=== PATIENT | female | born 1970 | race Caucasian/White ===

== ENCOUNTER → 2017-09-10 09:46 | Outpatient (POV) | payer OTHER, SELFPAY | PROVIDERS: PCP Nurse Practitioner Family; Visit Provider Nurse Practitioner Acute Care | DX: Z00.00 Encounter for general adult medical examination without abnormal findings (principal) ==

== ENCOUNTER → 2017-12-10 09:16 | Outpatient (POV) | payer OTHER, SELFPAY ==
[2017-12-10 10:17] LABS: Basophils % 0.6 % (0.1-2.0); Eosinophils # 0.1 K/mm3 (0.0-0.4); Hematocrit 41.6 % (37.0-47.0); Lymphocytes # 1.3 K/mm3 (0.7-4.5); Lymphocytes % 26.2 K/mm3 (10-50); Mean Corpuscular HGB Conc 33.8 g/dL (31.8-35.4); Mean Corpuscular Hemoglobin 30.5 pg (27.0-31.2); Mean Corpuscular Volume 90.3 fl (81-99); Mean Platelet Volume 9.9 fl (7.4-10.4); Monocytes # 0.3 K/mm3 (0.1-1.0); Monocytes % 5.7 % (1.7-9.3); Neutrophils # 3.3 K/mm3 (1.8-7.8); Neutrophils % 66.6 % (37.0-80.0); Platelet Count 160 K/mm3 (142-424); Red Cell Distribution Width 12.4 % (11.5-17.5)
[2017-12-10 12:55] LABS: Alanine Aminotransferase 23 U/L (12-78); Albumin Level 4.4 gm/dL (3.4-5.0); Albumin/Globulin Ratio 1.4 (1.1-1.8); Alkaline Phosphatase 86 U/L (46-116); Amylase 40 U/L (25-125); Anion Gap 12.7 mEq/L (5-15); Aspartate Amino Transferase 14 U/L (15-37); Bilirubin,Total 0.8 mg/dL (0.2-1.0); Blood Urea Nitrogen 12 mg/dL (7-18); Calcium 9.5 mg/dL (8.5-10.1); Carbon Dioxide 30 mmol/L (21.0-32.0); Chloride 103 mmol/L (98-107); Creatinine,Serum 0.81 mg/dL (0.55-1.02); Estimated Glomerular Filt Rate 75 ml/min (>60); GFR (African American) 91 ML/MIN (>60); Globulin 3.1 gm/dl (1.3-3.2); Glucose 111 mg/dL (74-106); Lipase 130 u/L (73-393); Potassium 3.7 mmoL/L (3.5-5.1); Sodium 142 mmol/L (136-145); Total Protein,Serum 7.5 gm/dL (6.4-8.2)
== END ==
PROVIDERS: Visit Provider Nurse Practitioner Acute Care
DX: R10.11 Right upper quadrant pain (principal)
CPT/HCPCS: 36415; 80053; 82150; 83690; 85025

== ENCOUNTER → 2019-12-28 16:27 | Outpatient (CLI) | payer OTHER, SELFPAY ==
--- NOTE | 2019-12-28 16:33 | XR_ITS ---
PROCEDURE: XR WRIST RT MIN 3V CLINICAL INDICATION: PAIN IN RIGHT WRIST Injury with pain COMPARISON: No exams were available for comparison FINDINGS: There is a faint transverse lucency along the lateral aspect of the distal radius suspicious for nondisplaced fracture. In addition, there is cortical irregularity of the posterior and distal aspect of the radius which could also be due to a nondisplaced fracture. CT of the wrist may confirm. IMPRESSION: Nondisplaced distal radial fracture. Consider CT for confirmation Dictated by: Rui Juarez MD 12/28/2019 19:38 Electronically signed by Rui Juarez MD in [place] 12/28/2019 19:38
== END ==
PROVIDERS: PCP Nurse Practitioner Family; Visit Provider Urology
DX: M25.531 Pain in right wrist (principal)
CPT/HCPCS: 73110

== ENCOUNTER → 2020-11-10 09:22 | Outpatient (CLI) | payer OTHER, SELFPAY ==
[2020-11-10 11:05] LABS: Coronavirus 19 IgG Antibody Negative (Negative); Coronavirus 19 IgM Antibody Negative (Negative)
== END ==
PROVIDERS: Visit Provider Internal Medicine Gastroenterology
DX: Z01.812 Encounter for preprocedural laboratory examination (principal); Z11.52 Encounter for screening for COVID-19; Z12.11 Encounter for screening for malignant neoplasm of colon; Z86.010 Personal history of colon polyps
CPT/HCPCS: 36415; 86328

== ENCOUNTER → 2020-12-10 09:41 | Outpatient (CLI) | payer OTHER, SELFPAY | PROVIDERS: Visit Provider Internal Medicine Gastroenterology | DX: Z01.812 Encounter for preprocedural laboratory examination (principal); Z11.52 Encounter for screening for COVID-19; Z12.11 Encounter for screening for malignant neoplasm of colon | CPT/HCPCS: U0003 ==

== ENCOUNTER 2020-12-13 13:02 | Day surgery (SDC) | payer OTHER, SELFPAY ==
[2020-12-08 12:59] VITALS: BMI 28.0
[2020-12-13 13:43] VITALS: BP 121/77; PULSE 62; RESP 16; TEMP 36.6; O2SAT 98
--- NOTE | 2020-12-13 14:26 | HMH.ANESCL ---
[facility] Anesthesia Checklist - Patient Identification Patient Identification: Arm Band - Structural Data Admitted From: Home Planned Operative Procedure/s: colonoscopy Consent for Planned Operative Procedure(s) Verified: Yes Verified Documents: Surgical Consent, History and Physical - NPO Status Verified Time NPO: 00:00 - Additional verifications Anesthesia Reactions: No Hx Blood Transfusions: No Blood Transfusion Reaction: Yes - Airway Assessment C-Spine Mobility Assessed: Yes (mp2) TMJ Mobility Assessed: Yes Dentition: Good Dentition - Neurological Assessment Level of Consciousness: Awake, Alert - Anesthesia Plan Anesthesia Risk discussed: Yes Anesthesia Plan: Verified ASA Class: II Anesthesia Type: MAC [facility] History I have reviewed the patient's past medical history: Yes Medical History: Reports:: Anxiety, Gastroesophageal Reflux Disease(GERD), Hyperlipidemia, Hypertension Denies:: Cancer, Diabetes Mellitus Type 1, Diabetes Mellitus Type 2, Internal Pacemaker, MRSA, Seizures *Have you ever received a pneumonia vaccine?: No *Have you received a flu vaccine this season?: Yes Other Medical History: Reports: Blood Transfusion Reaction, Hypothyroidism, Other Anesthesia experience/problems:: nac Other Surgeries: Yes: Cholecystectomy, Colonoscopy, Hysterectomy-Partial, Other. No: Pacemaker Amputation: No Fractures: No - *Social History Last grade of school completed: High school graduate Smoking Status: Never smoker Alcohol Intake: never Alcohol Intake Frequency:: other Substance Use Type: denies use *Occupational Status:: unemployed Housing: house Household Members: spouse, family *Travel in the last 8 weeks: None Family Hx:: Cancer, Diabetes
[2020-12-13 14:28] VITALS: O2SAT 97
--- NOTE | 2020-12-13 14:55 | HMH.PROC ---
[facility] Procedure Note Procedure Note:: Colonoscopy Procedure Report: Colonoscopy with cold snare polypectomy Endoscopist: Cristiano Linares II, MD Referring physician: Giana ROSADO Date of Procedure: December 13, 2020 Equipment: Olympus 190 variable stiffness pediatric colonoscope Sedation: MAC sedation Indication: Mrs. Robbins is a 50-year-old female who is here for follow-up surveillance colonoscopy. She did have a colonoscopy in May 2017 and had 5 colon polyps (small serrated adenomas x2, tubular adenoma x1 and mucosal prolapse polyps x2) which were removed. The patient does state that her maternal grandmother had colon cancer and her maternal aunt had pancreatic cancer. The patient does have some chronic right upper quadrant abdominal pain that radiates into the back. This is similar to her gallbladder pain. 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 The patient does report irregular bowel function with constipation that alternates with diarrhea. This is improved with Metamucil (over MiraLAX). She does get some bloating, belching and fullness. She reports less nausea. She reports no rectal bleeding. Procedure: Prior to the procedure, a history and physical exam was performed, and patient's medications and allergies were reviewed. The risks, benefits and alternatives of the sedation and procedure were discussed with the patient. All questions were answered and informed consent was obtained. The patient was brought to the procedure room. Patient identification and proposed procedure were verified by the physician and the nurse. The patient was placed in a left lateral decubitus position and the scope was passed under direct vision. Throughout the procedure, the patient's blood pressure, pulse, and oxygen saturations were monitored continuously. The colonoscopy was accomplished without difficulty. The patient tolerated the procedure well. Findings: On digital rectal examination there was normal rectal tone. There were no external hemorrhoids. The colonoscope was introduced through the anal canal to the rectum and advanced to the cecum. The ileocecal valve and appendiceal orifice were identified. The scope was advanced a short distance into the ileum which appeared grossly normal. The scope was then withdrawn into the colon. The cecum was normal. There was a diminutive 3 to 4 mm polyp in the ascending colon removed via cold snare polypectomy. There was some angulation at the hepatic flexure suggestive of hepatic flexure syndrome. The remaining transverse colon and mucosa were grossly normal. There were scattered diverticuli throughout the descending and sigmoid colon (LEFT colon). The rectum itself was normal. Upon retroflexion within the rectum there were grade 1-2 internal hemorrhoids. The preparation was excellent throughout with [place] Preparation Score of 9. The cecal time was 12 minutes. Impression: 1. Diminutive ascending colon polyp 2. Left-sided diverticulosis 3. Grade 1-2 internal hemorrhoids 4. 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 I suspect that this is the source of her right upper abdominal pain. We will discuss additional treatment options. I would consider treatment for visceral sensitivity. I will follow up the polyp histology and recommend repeat screening/surveillance colonoscopy again in 5 to 7 years based upon the pathology.
[2020-12-13 14:57] VITALS: BP 98/58; PULSE 64; RESP 18; TEMP 36.3; O2SAT 97
[2020-12-13 15:07] VITALS: BP 105/54; PULSE 62; RESP 18; O2SAT 100
[2020-12-13 15:17] VITALS: BP 119/79; PULSE 53; RESP 18; O2SAT 100
[2020-12-13 15:29] VITALS: BP 123/75; PULSE 51; RESP 18; O2SAT 100
== END 2020-12-13 15:39 | disposition home or self-care (01) ==
LOC: OUTP 13:04
PROVIDERS: PCP Nurse Practitioner Family; Visit Provider Internal Medicine Gastroenterology
PROC: 0DJD8ZZ Inspection of Lower Intestinal Tract, Via Natural or Artificial Opening Endoscopic (ICD-10-PCS; CPT 45378; principal; 2020-12-13 14:00)
DX: Z12.11 Encounter for screening for malignant neoplasm of colon (principal); Z86.010 Personal history of colon polyps; K63.5 Polyp of colon; K57.30 Diverticulosis of large intestine without perforation or abscess without bleeding; K64.0 First degree hemorrhoids; K21.9 Gastro-esophageal reflux disease without esophagitis; F41.9 Anxiety disorder, unspecified; E78.5 Hyperlipidemia, unspecified; I10 Essential (primary) hypertension; Z90.49 Acquired absence of other specified parts of digestive tract; Z83.3 Family history of diabetes mellitus
CPT/HCPCS: 45385

== ENCOUNTER → 2021-03-14 09:07 | Outpatient (POV) | payer OTHER, SELFPAY | PROVIDERS: Visit Provider Nurse Practitioner Family | DX: Z00.00 Encounter for general adult medical examination without abnormal findings (principal) ==

== ENCOUNTER → 2021-04-23 09:17 | Outpatient (CLI) | payer OTHER, SELFPAY ==
[2021-04-23 10:40] LABS: Basophils # 0.1 K/mm3 (0-0.2); Basophils % 1.6 % (0.1-2.0); Eosinophils # 0.1 K/mm3 (0.0-0.4); Eosinophils % 1.3 % (0.1-12.0); Hematocrit 42.1 % (37.0-47.0); Hemoglobin 13.7 g/dL (12.2-16.2); Lymphocytes # 1.5 K/mm3 (0.7-4.5); Lymphocytes % 23.2 % (10-50); Mean Corpuscular HGB Conc 32.4 g/dL (31.8-35.4); Mean Corpuscular Hemoglobin 30.7 pg (27.0-31.2); Mean Corpuscular Volume 94.6 fl (81-99); Mean Platelet Volume 12.2 fl (7.4-10.4); Monocytes # 0.3 K/mm3 (0.1-1.0); Monocytes % 4.4 % (1.7-9.3); Neutrophils # 4.4 K/mm3 (1.8-7.8); Neutrophils % 69.5 % (37.0-80.0); Platelet Count 177 K/mm3 (142-424); Red Blood Count 4.45 M/mm3 (4.20-5.40); White Blood Count 6.3 K/mm3 (4.8-10.8)
[2021-04-23 11:02] LABS: Alanine Aminotransferase 10 U/L (12-78); Albumin Level 4.1 g/dl (3.5-5.0); Albumin/Globulin Ratio 1.4 (1.1-1.8); Alkaline Phosphatase 121 U/L (38-126); Anion Gap 14.8 mEq/L (5-15); Aspartate Amino Transferase 23 U/L (14-36); Bilirubin,Total 0.5 mg/dl (0.2-1.3); Blood Urea Nitrogen 7 mg/dl (7-17); Calcium 8.9 mg/dl (8.4-10.2); Carbon Dioxide 28 mmol/L (22.0-30.0); Chloride 102 mmol/L (98-107); Chol/HDL Ratio 3.5 (1-3.5); Cholesterol 162 mg/dl (140-200); Estimated Glomerular Filt Rate 76 ml/min (>60); GFR (African American) 92 ML/MIN (>60); Globulin 2.9 g/dL (1.3-3.2); Glucose 107 mg/dl (74-100); HDL Cholesterol 46 mg/dl (40-60); Potassium 4.8 mmoL/L (3.5-5.1); Sodium 140 mmol/L (136-145); Triglycerides 187 mg/dl (30-150); VLDL Cholesterol 37 mg/dL (0-40)
[2021-04-23 11:13] LABS: Direct LDL Cholesterol 74.44 mg/dL (100-129)
[2021-04-23 11:58] LABS: Thyroid Stimulating Hormone 1.44 uIU/mL (0.465-4.68)
[2021-04-23 12:16] LABS: Vitamin B12 353 pg/mL (239-931)
== END ==
PROVIDERS: Visit Provider Nurse Practitioner Family
DX: Z00.00 Encounter for general adult medical examination without abnormal findings (principal); I10 Essential (primary) hypertension; E78.5 Hyperlipidemia, unspecified; E03.9 Hypothyroidism, unspecified; E53.8 Deficiency of other specified B group vitamins
CPT/HCPCS: 80053; 80061; 82607; 84443; 85025

== ENCOUNTER → 2021-07-28 20:51 | Outpatient (CLI) | payer OTHER, SELFPAY | PROVIDERS: Visit Provider Nurse Practitioner Family | DX: Z20.822 Contact with and (suspected) exposure to COVID-19 (principal); R51.9 Headache, unspecified; J02.9 Acute pharyngitis, unspecified | CPT/HCPCS: C9803; U0003; U0005 ==

== ENCOUNTER → 2022-02-07 09:31 | Outpatient (POV) | payer OTHER, SELFPAY | PROVIDERS: Visit Provider Dermatology | DX: Z00.00 Encounter for general adult medical examination without abnormal findings (principal) ==

== ENCOUNTER → 2022-05-31 07:41 | Outpatient (CLI) | payer OTHER, SELFPAY ==
--- NOTE | 2022-05-31 07:50 | XR_ITS ---
FINAL REPORT CLINICAL HISTORY: FOOT PAIN FINDINGS: RIGHT FOOT Three views of the right foot demonstrate no acute fracture or dislocation. There are mild degenerative changes of the 1st MTP joint. There are calcaneal spurs. The visualized joint spaces are normally aligned. The soft tissues are unremarkable. IMPRESSION: Mild degenerative change of the 1st MTP joint. Reviewed, Interpreted and Dictated by Delvin Braun III, MD Transcribed by Payton Najera Authenticated and [facility]
--- NOTE | 2022-05-31 07:50 | XR_ITS ---
FINAL REPORT CLINICAL HISTORY: FOOT PAIN FINDINGS: LEFT FOOT Three views of the left foot demonstrate no acute fracture or dislocation. There are mild degenerative changes of the 1st MTP joint. There are calcaneal spurs. The visualized joint spaces are normally aligned. The soft tissues are unremarkable. IMPRESSION: Mild degenerative change of the 1st MTP joint. Reviewed, Interpreted and Dictated by Delvin Braun III, MD Transcribed by Payton Najera Authenticated and [facility]
== END ==
PROVIDERS: PCP Nurse Practitioner Family; Visit Provider Podiatrist
DX: M79.671 Pain in right foot (principal); M79.672 Pain in left foot
CPT/HCPCS: 73630

== ENCOUNTER 2025-07-28 15:45 | Outpatient (CLI) | payer OTHER, SELFPAY ==
--- OUTSIDE RECORDS SUMMARY | 2024-11-01 16:30 | XMS_ITS ---
Author Organization [facility] Address [address] [place] [address] Care Team Providers Care Residential Fee Appraiser Name Role Phone Skylar Mercer Primary Care Provider SKYLAR Mercer APRN Unavailable Unavailable Migration, Provider Unavailable Unavailable Allergies Allergen (clinical drug ingredient) Drug/Non Drug Allergy documented on EMR Reaction Allergy Type Onset Date Status Latex LATEX (uncoded) Unknown Allergy Acti ve OMNICEF (uncoded) Unknown Allergy Ac tive clindamycin Clindamycin vomitting Drug Allergy Act davon morphine Morphine stomach upset Drug Allergy Act davon Penicillin Unknown Drug Allergy Active REASON FOR VISIT [facility] To [facility] Conversion Encounter Medications Medication SIG (Take, Route, Frequency, Duration) Notes Start Date End Date Status Fluticasone Propionate 50 MCG/ACT Suspension 2 sprays in each nostril twice a day prn; Duration: 30 days Active Meclizine HCl 25 MG Tablet 1 tab(s) oral ly 3 times a day prn vertigo; Duration: 30 days PRN Active Omeprazole 20 MG Capsule Delayed Release 1 cap(s) orally twice daily; Duration: 90 days Active Atorvastatin Calcium 20 MG Tablet 1 tab(s) orally once a day; Duration: 90 days Active ZyrTEC Allergy 10 MG Tablet 1 tab(s) ora lly once a day; Duration: 90 days Active Furosemide 20 MG Tablet 1/2- 1 tab orall y once a day; Duration: 30 days 09/27/2024 Active PARoxetine HCl 10 MG Tablet 1 tab(s) ora lly once a day at bedtime; Duration: 30 days 09/27/2024 Active Metamucil Smooth Texture 58.6 % Powder as directed orally once a day prn Active Levothyroxine Sodium 100 MCG Tablet 1 tab(s) orally once a day; Duration: 90 days Active Encounters Encounter Location Date Provider Diagnosis [facility] [address] [place], [place] [address] 11/01/2024 Provider Migration Depression with anxiety F41.8 and Leg edema R60.0 Assessments Encounter Date Diagnosis (ICD Code) Assessment Notes Treatment Notes Treatment Clinical Notes Section Notes 11/01/2024 Depression with anxiety (ICD-10 - F41.8) 11/01/2024 Leg edema (ICD-10 - R60.0) Plan Of Treatment Medication Medication Name Sig Start Date Stop Date Notes Atorvastatin Calcium 20 MG Tablet 1 tab( s) orally once a day; Duration: 90 days ZyrTEC Allergy 10 MG Tablet 1 tab(s) ora lly once a day; Duration: 90 days Furosemide 20 MG Tablet 1/2- 1 tab orall y once a day; Duration: 30 days 09/27/2024 PARoxetine HCl 10 MG Tablet 1 tab(s) ora lly once a day at bedtime; Duration: 30 days 09/27/2024 Levothyroxine Sodium 100 MCG Tablet 1 tab(s) orally once a day; Duration: 90 days Progress Notes * Hailey HERNANDEZDOB:[birth year] (54 yo F)Acc No.[id number]:11/01/2024 Patient: Hailey Flynn Provider: Quang Valverde :1970 A ge:54 Y S ex:Female Date:11/01/2024 Address:[facility] [address], [place], [id number] Pcp:Skylar Mercer Subjective: * Chief Complaints: * M [facility] Conversion Encounter * Medications: T akingMetamucil Smooth Texture 58.6 % Powder as directed orally once a day , Notes to Pharmacist: prnOmeprazole 20 MG Capsule Delayed Release 1 cap(s) orally twice daily Fluticasone Propionate 50 MCG/ACT Suspension 2 sprays in each nostril twice a day prn Meclizine HCl 25 MG Tablet 1 tab(s) orally 3 times a day prn vertigo , Notes to Pharmacist: PRNTaking Metamucil Smooth Texture 58.6 % Powder as directed orally once a day , Notes to Pharmacist: prnTaking Omeprazole 20 MG Capsule Delayed Release 1 cap(s) orally twice daily Taking Fluticasone Propionate 50 MCG/ACT Suspension 2 sprays in each nostril twice a day prn Taking Meclizine HCl 25 MG Tablet 1 tab(s) orally 3 times a day prn vertigo , Notes to Pharmacist: PRN * Allergies: P enicillinOMNICEFClindamycin: vomittingMorphine: stomach upsetLATEX Assessment: * Assessment: 1. D epression with anxiety - F41.8 (Primary) 2 . L eg edema - R60.0 ? Plan: * Treatment: 2. L eg edema Start Furosemide Tablet, 20 MG, 1/2- 1 tab, orally, once a day, 30 days, 30, Refills 0. 3. O thers Start ZyrTEC Allergy Tablet, 10 MG, 1 tab(s), orally, once a day, 90 days, 90 Tablet, Refills 3;?Start Levothyroxine Sodium Tablet, 100 MCG, 1 tab(s), orally, once a day, 90 days, 90 Tablet, Refills 3; S tart Atorvastatin Calcium Tablet, 20 MG, 1 tab(s), orally, once a day, 90 days, 90 Tablet, Refills 3. Billing Information: * Procedure Codes: * Electronic signature of Prov ider Migration on 07/28/2025 at 03:48 PM EST Sign off status: Pending * Provider: Quang riddle Migration Date: 0 11/01/2024 Generated for Willy rg/Kathie/Domingo on: 1 03:48 PM EST
--- OUTSIDE RECORDS SUMMARY | 2025-06-18 09:45 | XMS_ITS | Encounter Summary ---
Author Organization [employer] ([place], [place], [place], [place], [place]) Address [address] [place] [address] Care Team Providers Care Java Security Architect Name Role Phone Elida Topete MD Unavailable [phone] George Brannon MD Unavailable [phone] Deondre William MD Unavailable Giana Mercer APRN Primary Care Provider Reason for Visit * Reason Comments Follow-up Malignant neoplasm o f upper-outer quadrant of right breast in female, estrogen receptor positive (HCC) Encounter Details Date Type Department Care Team (Late st Contact Info) Description 06/18/2025 9:45 AM EST Office Visit [facility] [address] [facility] [address] [facility] [address] [place] [address] Elida Topete MD [address] [place] [address] Malignant neoplasm of upper-outer quadrant of right breast in female, estrogen receptor positive (HCC) (Primary Dx); Osteopenia after menopause Social History Tobacco Use Types Packs/Day Years Used Date Smoking Tobacco: Never Passive Smoke Exposure: Past Smokeless Tobacco: Never Tobacco Cessation:Counseling Given: Not Answered Alcohol Use Standard Drinks/Week Comments Not Currently 0 (1 standard drink = 0.6 oz pure alcohol) once a month/on special occasion Social Connection and Isolation Panel Answer Date Recorded In a typical week, how many times do you talk on the phone with family, friends, or neighbors? More than three times a week 08/31/2022 How often do you get togethe r with friends or relatives? More than three times a week 08/31/2022 How often do you attend chur ch or shinto services? More than 4 times per year 08/31/2022 Do you belong to any clubs o r organizations such as voodoo groups, unions, fraternal or athletic groups, or school groups? No 08/31/2022 How often do you attend meet ings of the clubs or organizations you belong to? Never 08/31/2022 Are you , , di vorced, , never , or living with a partner? 08/31/2022 Overall Financial Resource Strain (CARDIA) Answe r Date Recorded How hard is it for you to pa y for the very basics like food, housing, medical care, and heating? Not hard at all 08/31/2022 Exercise Vital Sign Answer Date Recorde d On average, how many days pe r week do you engage in moderate to strenuous exercise (like a brisk walk)? 3 days 08/31/2022 On average, how many minutes do you engage in exercise at this level? 30 min 08/31/2022 Hunger Vital Sign Answer Date Recorded Within the past 12 months, y ou worried that your food would run out before you got the money to buy more. Never true 08/31/19 23 Within the past 12 months, t he food you bought just didn't last and you didn't have money to get more. Never true 08/31/2022 PRAPARE - Transportation Answer Date Re corded In the past 12 months, has l ack of transportation kept you from medical appointments or from getting medications? No 08/2022 In the past 12 months, has l ack of transportation kept you from meetings, work, or from getting things needed for daily living? No 08/31/2022 Family and Community Support Answer Lucho e Recorded Help with Day to Day Activities Not on file 08/17/2023 Feeling Lonely or Isolated Not on file 08/17 Educational Attainment Answer Date Carlos Manuel rded Speak language other than Cambodian at home Not on file 08/17/2023 Want help with school or training Not on file 08/17/2023 Substance Use Answer Date Recorded Used prescription meds for non-medical reasons N ot on file 08/17/2023 Used illegal drugs past 12 months Not on file 08/17/2023 Comments No Sex and Gender Information Value Date Recorded Sex Assigned at Female 01/24/2022 7:38 PM CDT Legal Sex Female 7:38 PM CDT Gender Identity Female 01/24/2022 7:38 PM CDT Sexual Orientation Not on file Occupation Industry Job Start Date Job End Date Retired Not on file Not on file Not on file documented as of this encounter Last Filed Vital Signs Vital Sign Reading Time Taken Comments Blood Pressure 131/58 06/18/2025 9:27 AM EST Pulse 67 06/18/2025 9:27 AM EST Temperature 36.7 C (98 F) 06/18/2025 9:27 AM EST Respiratory Rate 18 06/18/2025 9:27 AM EST Oxygen Saturation 98% 06/18/2025 9:27 AM EST Inhaled Oxygen Concentration - - Weight 86.8 kg (191 lb 4.8 oz) 06/18/2025 9:27 A M EST Height 175.3 cm (5' 9 ) 06/18/2025 9:27 AM EST Body Mass Index 28.25 06/18/2025 9:27 AM EST documented in this encounter Functional Status * BP Answer Date of Assessment Author 131/58 06/18/2025 9:27 AM Tammy Stout * Temp Answer Date of Assessment Author 98 06/18/2025 9:27 AM Tammy Stout * Temp src Answer Date of Assessment Author Temporal Artery 06/18/2025 9:27 AM GAS STATION SERVICE ATTENDANT Tammy Nunez * Pulse Answer Date of Assessment Author 67 06/18/2025 9:27 AM Tammy Stout * Resp Answer Date of Assessment Author 18 06/18/2025 9:27 AM Tammy Stout * SpO2 Answer Date of Assessment Author 98 06/18/2025 9:27 AM Tammy Stout * Height Answer Date of Assessment Author 69 06/18/2025 9:27 AM Tammy Stout * Weight Answer Date of Assessment Author 3060.8 06/18/2025 9:27 AM GAS STATION SERVICE ATTENDANT Enrique, Lat chris * Pain Score Answer Date of Assessment Author 0-No pain 06/18/2025 9:27 AM GAS STATION SERVICE ATTENDANT Enrique, Lat chris * Tidal Volume Answer Date of Assessment Author 390 06/18/2025 9:27 AM GAS STATION SERVICE ATTENDANT Enrique, Lat chris * Shock Index Answer Date of Assessment Author 0.51 06/18/2025 9:27 AM GAS STATION SERVICE ATTENDANT Enrique, Lat chris * Pain Assessment Timer Question Answer Date of Assessment Author Restart Pain Assessment Timer Yes 06/18/2025 9:27 AM GAS STATION SERVICE ATTENDANT Enrique, Ofelia * BMI (Calculated) Answer Date of Assessment Author 28.2 06/18/2025 9:27 AM GAS STATION SERVICE ATTENDANT Enrique, Lat chris * BP Location Answer Date of Assessment Author Right arm 06/18/2025 9:27 AM GAS STATION SERVICE ATTENDANT Enrique, Lat chris * Restart Vitals Timer Answer Date of Assessment Author Yes 06/18/2025 9:27 AM GAS STATION SERVICE ATTENDANT Enrique, Lat chris * Patient Position Answer Date of Assessment Author Sitting 06/18/2025 9:27 AM GAS STATION SERVICE ATTENDANT Enrique, Lat chris * BP Answer Date of Assessment Author 131/58 06/18/2025 9:27 AM GAS STATION SERVICE ATTENDANT Enrique, Lat chris * Pulse Answer Date of Assessment Author 67 06/18/2025 9:27 AM GAS STATION SERVICE ATTENDANT Enrique, Lat chris * Resp Answer Date of Assessment Author 18 06/18/2025 9:27 AM GAS STATION SERVICE ATTENDANT Enrique, Lat chris * SpO2 Answer Date of Assessment Author 98 06/18/2025 9:27 AM GAS STATION SERVICE ATTENDANT Enrique Lat chris * BMI (Calculated) Answer Date of Assessment Author 28.2 06/18/2025 9:27 AM GAS STATION SERVICE ATTENDANT Enrique Lat chris documented as of this encounter Mental Status * BP Answer Entry Date Author 131/58 06/18/2025 9:27 AM GAS STATION SERVICE ATTENDANT Enrique, Lat chris * Temp Answer Entry Date Author 98 06/18/2025 9:27 AM GAS STATION SERVICE ATTENDANT Enrique, Lat chris * Temp src Answer Entry Date Author Temporal Artery 06/18/2025 9:27 AM GAS STATION SERVICE ATTENDANT Enrique, Lat chris * Pulse Answer Entry Date Author 67 06/18/2025 9:27 AM GAS STATION SERVICE ATTENDANT Enrique, Lat chris * Resp Answer Entry Date Author 18 06/18/2025 9:27 AM GAS STATION SERVICE ATTENDANT Enrique, Lat chris * SpO2 Answer Entry Date Author 98 06/18/2025 9:27 AM GAS STATION SERVICE ATTENDANT West, Lat chris * Height Answer Entry Date Author 69 06/18/2025 9:27 AM GAS STATION SERVICE ATTENDANT [place], Lat chris * Weight Answer Entry Date Author 3060.8 06/18/2025 9:27 AM GAS STATION SERVICE ATTENDANT West, Lat chris * Pain Score Answer Entry Date Author 0-No pain 06/18/2025 9:27 AM GAS STATION SERVICE ATTENDANT [place], Lat chris * Tidal Volume Answer Entry Date Author 390 06/18/2025 9:27 AM GAS STATION SERVICE ATTENDANT West, Lat chris * Shock Index Answer Entry Date Author 0.51 06/18/2025 9:27 AM GAS STATION SERVICE ATTENDANT [place], Lat chris * BMI (Calculated) Answer Entry Date Author 28.2 06/18/2025 9:27 AM GAS STATION SERVICE ATTENDANT [place], Lat chris * BP Location Answer Entry Date Author Right arm 06/18/2025 9:27 AM GAS STATION SERVICE ATTENDANT West, Lat chris * Patient Position Answer Entry Date Author Sitting 06/18/2025 9:27 AM GAS STATION SERVICE ATTENDANT [place], Lat chris documented in this encounter Progress Notes * Elida Topete MD - 06/18/2025 9:[address] [facility] Note Cancer History: 1. Screening mammography 06/19/2022 with distortion left breast 2-3:00 - Stereotactic biopsy with DCIS, ER/VA positive. - Completed adjuvant radiation 10/19. -Endocrine therapy poorly tolerated (anastrozole-arthralgias, letrozole-mood disruption). 2. Genetic counseling and testing 09/21 Ambry Negative. 3. Screening mammography 07/22, increasing calcifications right 10-11:. Stereotactic biopsy with a ER positive, VA negative, high-grade DCIS. -Lumpectomy with DCIS only, no invasive disease, margins negative. -Adjuvant radiation completed 11/21. -Poor tolerance of tamoxifen, exemestane prescribed 04/23. Chief Complaint Patient presents with Follow-up Malignant neoplasm of upper-outer quadrant of right breast in female, estrogen receptor positive (HCC) History of Present Illness Hailey Robbins is a 54 year old female with DCIS who presents for follow-up. She never started exemestane and wants to return to tamoxifen, considering a lower dose due to previous side effects such as knee pain, dryness, irritation, and itching. Her stomach felt better whileon tamoxifen. She inquires about the results of a recent bone density test, noting that the hip was previously the worst spot. She is also concerned about her ovaries, having undergone a recent test with pending results, and is interested in ovarian screening due to her history of breast cancer. Past Medical History: Diagnosis Date Acid reflux Breast cancer (HCC) PONV (postoperative nausea and vomiting) Seasonal allergies Past Surgical History: Procedure Laterality Date CHOLECYSTECTOMY N/A 2016 gallbladder HYSTERECTOMY 2013 LUMPECTOMY Left 08/22/2022 Procedure: LUMPECTOMY, LEFT BREAST; Surgeon: George Brannon MD; Location: [facility] OR; Service: General Surgery; Laterality: Left; MASTECTOMY,PARTIAL/LUMPECTOMY Right 09/10/2024 Procedure: RIGHT BREAST NEEDLE LOCALIZED PARTIAL MASTECTOMYH; Surgeon: George Brannon MD; Location: [facility] OR; Service: General Surgery; Laterality: Right; NEEDLE LOCALIZATION Left 08/22/2022 Procedure: NEEDLE LOCALIZATION; Surgeon: George Brannon MD; Location: [facility] OR; Service: General Surgery; Laterality: Left; TUBAL LIGATION 1999 Social History Socioeconomic History Marital status: Spouse name: Not on file Number of children: Not on file Years of education: Not on file Highest education level: Not on file Occupational History Occupation: Retired Tobacco Use Smoking status: Never Passive exposure: Past Smokeless tobacco: Never Vaping Use Vaping status: Never Used Substance and Sexual Activity Alcohol use: Not Currently Comment: once a month/on special occasion Drug use: Never Sexual activity: Yes Other Topics Concern Not on file Social History Narrative Not on file Social Drivers of Health Food Insecurity: No Food Insecurity (08/31/2022) Hunger Vital Sign Worried About Running Out of Food in the Last Year: Never true Ran Out of Food in the Last Year: Never true Transportation: No Transportation Needs (08/31/2022) PRAPARE - Transportation Lack of Transportation (Medical): No Lack of Transportation (Non-Medical): No Family History Problem Relation Name Age of Onset No Known Problem Father Stomach cancer Maternal Grandmother Colon cancer Maternal Grandmother Throat cancer Paternal Grandfather Pancreatic cancer Maternal Aunt Lisa No Known Problem Paternal Aunt Clotting disorder Brother No Known Problem Maternal Uncle Throat cancer Paternal Uncle Jose Manuel No Known Problem Other Breast cancer Cousin Daphne Allergies: Clindamycin, Morphine, Penicillin, Cefdinir, and Latex Medications: Current Outpatient Medications Medication Instructions atorvastatin (LIPITOR) 20 mg, Daily cetirizine (ZYRTEC) 10 mg, Daily fluticasone propionate (FLONASE) 50 mcg/actuation nasal spray SMARTSIG:Solon(s) Both Nares levothyroxine (SYNTHROID) 100 mcg, Every morning on an empty stomach omeprazole (PRILOSEC) 20 mg, 2 times daily tamoxifen (NOLVADEX) 10 mg, oral, Daily Review of Systems: 10 systems reviewed and negative except as noted per HPI Vitals Vitals: 06/18/25 0927 BP: 131/58 BP Location: Right arm Patient Position: Sitting Cuff Size: Adult Long Pulse: 67 Resp: 18 Temp: 98 ??F (36.7 ??C) TempSrc: Temporal Artery SpO2: 98% Weight: 86.8 kg (191 lb 4.8 oz) Height: 1.753 m (5' 9 ) Gain/Loss Since Last Wt (Kgs): -2 kg Physical Exam Vitals and nursing note reviewed. Constitutional: General: She is not in acute distress. Appearance: Normal appearance. She is not toxic-appearing. HENT: Head: Normocephalic and atraumatic. Nose: Nose normal. Mouth/Throat: Mouth: Mucous membranes are moist. Pharynx: Oropharynx is clear. Eyes: Extraocular Movements: Extraocular movements intact. Pupils: Pupils are equal, round, and reactive to light. Cardiovascular: Rate and Rhythm: Normal rate and regular rhythm. Heart sounds: Normal heart sounds. Pulmonary: Effort: Pulmonary effort is normal. No respiratory distress. Breath sounds: Normal breath sounds. No wheezing, rhonchi or rales. Chest: Breasts: Right: No mass, skin change or tenderness. Left: No mass, skin change or tenderness. Abdominal: General: Bowel sounds are normal. There is no distension. Palpations: Abdomen is soft. Tenderness: There is no abdominal tenderness. Musculoskeletal: General: No swelling or deformity. Normal range of motion. Cervical back: Normal range of motion and neck supple. Right lower leg: No edema. Left lower leg: No edema. Lymphadenopathy: Cervical: No cervical adenopathy. Upper Body: Right upper body: No supraclavicular or axillary adenopathy. Left upper body: No supraclavicular or axillary adenopathy. Skin: General: Skin is warm and dry. Coloration: Skin is not jaundiced or pale. Findings: No rash. Neurological: General: No focal deficit present. Mental Status: She is alert and oriented to person, place, and time. Motor: No weakness. Psychiatric: Mood and Affect: Mood normal. Behavior: Behavior normal. Thought Content: Thought content normal. Judgment: Judgment normal. Results: 05/23 BONE MINERAL DENSITY HISTORY: Postmenopausal female COMPARISON: November 2022 FINDINGS: Left femoral neck: 0.781 g/cm2 with corresponding T-score of -1.8. This is classified as borderline osteopenia. Lumbar spine, L1-L2: 1.091 g/cm2 with corresponding T-score of -0.7. This is classified as normal. FRAX: Major osteoporotic: 7.5% Hip: 0.8% IMPRESSION: Osteopenia Cancer Staging Malignant neoplasm of upper-outer quadrant of left breast in female, estrogen receptor positive (HCC) Staging form: Breast, AJCC 8th Edition - Clinical stage from 07/27/2022: Stage 0 (cTis (DCIS), cN0, cM0, ER+, VA+) - Signed by Elida Topete MD on 07/27/2022 - Pathologic stage from 08/22/2022: Stage 0 (pTis (DCIS), cN0, cM0, G2, ER+, VA+, HER2: Not Assessed) - Signed by Calvin Crenshaw MD on 08/31/2022 Malignant neoplasm of upper-outer quadrant of right breast in female, estrogen receptor positive (HCC) Staging form: Breast, AJCC 8th Edition - Clinical: Stage 0 (cTis (Paget), cN0, cM0, ER+, VA-, HER2: Unknown) - Signed by Elida Topete MD on 08/14/2024 - Pathologic stage from 09/10/2024: Stage Unknown (pTis (DCIS), pNX, cM0, G2, ER+, VA+, HER2: Not Assessed) - Unsigned Assessment & Plan Ductal carcinoma in situ (DCIS) of right breast, post-treatment - Restart tamoxifen at 10 mg daily, option to reduce to 5 mg every other day if side effects occur. - Scheduled for follow-up mammogram in August. Osteopenia of hip -Osteopenia of the hip with a T-score of -1.8, slightly improved. Tamoxifen preferred due to lack of negative impact on bone density. - Recommended calcium and vitamin D supplementation with 1200 mg of calcium and 1000 IU of vitamin D daily. - Repeat DEXA in 2026. Ovarian cancer screening Concern about ovarian health and potential cancer risk. No high-risk genetic indicators identified. - Provided information on [facility] ovarian cancer screening program. - Advised to contact for scheduling. Complex medical condition, receiving longitudinal care. New Medications Ordered This Visit Medications tamoxifen (NOLVADEX) 10 MG tablet Sig: Take 1 tablet (10 mg total) by mouth daily. Dispense: 90 tablet Refill: 3 No orders of the defined types were placed in this encounter. The following consent language was reviewed verbally with the patient in full: John, I am using a tool to help me do my notes. It is recording our conversation and creates my notes automatically and I can focus on our discussion instead of typing in the room. Is that okay with you? The patient demonstrated understanding and verbally agreed to the above consent language. All questions were addressed, and the patient provided informed consent to proceed. STATION SERVICE ATTENDANT documented in this encounter Plan of Treatment Upcoming Encounters Date Type Department Care Team (Late st Contact Info) Description 09/24/2025 1:00 PM EST Appointment [facility] - [place] [address] [place] [address] Calvin Crenshaw MD [address] [place] [address] 09/24/2025 1:30 PM EST Appointment [facility] Breast Care [address] [facility] [address] [place] [address] George Brannon MD [address] [facility] [address] [place] [address] 09/24/2025 2:30 PM EST Office Visit [facility] Breast Surgery Clinic [address] [facility] [address] [place] [id number] George Brannon MD [address] [place] [address] 12/17/2025 10:30 AM EDT Office Visit [facility] - [place] [address] [place] [address] Chana Vital, CURATOR [facility] [address] [place] [address] documented as of this encounter Visit Diagnoses Diagnosis Malignant neoplasm of upper-outer quadrant of right breast in female, estrogen receptor positive (HCC)- Primary Osteopenia after menopause documented in this encounter Care Teams Java Security Architect Relationship Specialty Start Date End Date Giana Mercer, CURATOR [facility] [address] [facility] [address] [place] [address] PCP - General Nurse Practitioner 03/15/23 Elida Topete MD [address] [facility] [address] [place] [address] Medical Oncologist Hematology and Oncology 08/31/22 George Brannon MD [address] [facility] [address] [place] [address] Surgeon General Surgery 08/31/22 Deondre William MD [address] [facility] [address] [place] [address] Referring Physician Adolescent Medicine 12/11/22 documented as of this encounter
--- OUTSIDE RECORDS SUMMARY | 2025-07-20 04:56 | XMS_ITS ---
Author Organization [facility] Address [address] [place] [address] Care Team Providers Care Medical Affairs Director Name Role Phone Giana Mercer Primary Care Provider GIANA Mercer APRN Unavailable Unavailable Encounters Encounter Location Date Provider Diagnosis [facility] [address] [place], [place] [address] 07/20/2025 Giana Mercer Dyspareunia, female N94.10 ; Malignant neoplasm of unspecified site of left female breast C50.912 and Recurrent cancer of right breast C50.911 Assessments Encounter Date Diagnosis (ICD Code) Assessment Notes Treatment Notes Treatment Clinical Notes Section Notes 07/20/2025 Dyspareunia, female (ICD-10 - N94.10) 07/20/2025 Malignant neoplasm of unspecified site of left female breast (ICD-10 - C50.912) 07/20/2025 Recurrent cancer of right breast (ICD-10 - C50.911) Plan Of Treatment Pending Test Test Name Order Date Ultrasound: Transvaginal 07/20/2025 Progress Notes * BERTHATressa NUNOsekou AlvarezDOB:[birth year] (54 yo F)Acc No.[id number]:07/20/2025 Patient: Hailey MADDXO :1970 A ge:54 Y S ex:Female Address:[facility] [address] [place] [address] Subjective: * Chief Complaints: * * Medical History: * Surgical History: * Hospitalization/Major Diagno stic Procedure: * Medications: Objective: * Vitals: * Physical Examination: Assessment: * Assessment: 1. D melania, female - N94.10 2 . M alignant neoplasm of unspecified site of left female breast - C50.912 3 . R ecurrent cancer of right breast - C50.911 Plan: * Treatment: * 2.?Malignant neoplasm of unspecified site of left female breast?Imaging: Ultrasound: Transvaginal* ovarian cancer Estela Velázquez 07/20/2025 09:58:13 AM EST > no auth required * 3.?Recurrent cancer of right breast?Imaging: Ultrasound: Transvaginal* ovarian cancer Estela Velázquez 07/20/2025 09:58:13 AM EST > no auth required * * Procedure Codes: * true * Date: Generated for Willy rg/Kathie/Sugeysmhailee on: 03:47 PM EST
--- NOTE | 2025-07-28 15:48 | US_ITS ---
PROCEDURE: US TRANSVAGINAL CLINICAL INDICATION: DYSPAREUMNIA COMPARISON: No exams were available for comparison FINDINGS: Transvaginal sonographic images of the pelvis were obtained. UTERUS: The uterus is surgically absent. The vaginal cuff is intact. LEFT OVARY: Not visualized and possibly surgically absent. RIGHT OVARY: 3.2cmx 1.7 cmx0.7 cm with a volume of 1.9ml. The right ovary has an unusual elongated appearance Doppler flow to right ovary is seen. There is no fluid in the cul-de-sac. IMPRESSION: 1. The uterus is surgically absent. The vaginal cuff is intact. 2. Left ovary is not visualized. The right ovary is seen and appears normal although it has an unusually elongated appearance. 3. No fluid in the cul-de-sac. Dictated by: Nikhil Henriquez MD 07/29/2025 09:59 Nikhil Henriquez MD in OV 07/29/2025 09:59
--- OUTSIDE RECORDS SUMMARY | 2025-07-28 15:48 | XMS_ITS | Clinical Summary ---
Author Organization [employer] ([place], [place], [place], [place], [place]) Address [address] [place] [address] Care Team Providers Care Room Server Name Role Phone Elida Topete MD Unavailable [phone] George Brannon MD Unavailable [phone] Deondre William MD Unavailable [phone] Giana Mercer APRN Primary Care Provider Allergies Active Allergy Reactions Criticality Noted Date Comments Cefdinir Rash Low 08/31/2022 Clindamycin Nausea Only 08/22/2022 Patient states she get nauseated when taking clindamycin by mouth Latex Rash Low 07/19/2022 Morphine Nausea Only 07/19/2022 Penicillin 07/19/2022 Told reaction as a child Medications atorvastatin (LIPITOR) 20 MG tablet Take 1 tablet (20 mg total) by mouth daily. 07/25/2022 Active cetirizine (ZyrTEC) 10 MG tablet Take 1 tablet (10 mg total) by mouth daily. 07/25/2022 Active omeprazole (PriLOSEC) 20 MG capsule Take 1 capsule (20 mg total) by mouth 2 (two) times daily. 07/25/2022 Active levothyroxine (SYNTHROID, LEVOTHROID) 100 MCG tablet Take 1 tablet (100 mcg total) by mouth Every morning on an empty stomach. Active fluticasone propionate (FLONASE) 50 mcg/actuation nasal spray SMARTSIG:Spr ay(s) Both Nares 12/07/2022 Active tamoxifen (NOLVADEX) 10 MG tablet Take 1 tablet (10 mg total) by mouth daily. 90 tablet 3 06/18/2025 Active Active Problems Problem Noted Date Diagnosed Date Malignant neoplasm of upper- outer quadrant of right breast in female, estrogen receptor positive 08/14/2024 Cancer Staging:Clinical:Stage 0(cTis (Paget), cN0, cM0, ER+, TX-, HER2: Unknown) - Signed by Elida Topete MD on 08/14/2024 Pathologic stage from 09/10/2024:Stage Unknown(pTis (DCIS), pNX, cM0, G2, ER+, TX+, HER2: Not Assessed) - Unsigned Hot flashes due to menopause 10/09/2022 PONV (postoperative nausea and vomiting) 023 Overview (08/22/2022): IV meds work to prevent. Pt does not want scopolamine HLD (hyperlipidemia) 08/22/2022 Hypothyroidism 08/22/2022 Gastroesophageal reflux disease 08/22/2022 HTN (hypertension) 08/22/2022 Overview (08/22/2022): No problems after 25-35 # wt loss Anxiety 08/22/2022 Malignant neoplasm of upper- outer quadrant of left breast in female, estrogen receptor positive 07/27/2022 Cancer Staging:Clinical stage from 07/27/2022:Stage 0(cTis (DCIS), cN0, cM0, ER+, TX+) - Signed by Elida Topete MD on 07/27/2022 Pathologic stage from 08/22/2022:Stage 0(pTis (DCIS), cN0, cM0, G2, ER+, [place]+, HER2: Not Assessed) - Signed by Calvin Crenshaw MD on 08/31/2022 Encounters Date Type Department Care Team Description 06/18/2025 9:45 AM EST Office Visit [facility] - [place] [address] [place] [address] Elida Topete MD Malignant neoplasm of upper-outer quadrant of right breast in female, estrogen receptor positive (HCC) (Primary Dx); Osteopenia after menopause 06/18/2025 Travel 05/07/2025 10:00 AM EDT - 05/07/2025 11:59 PM EDT Hospital Encounter [facility] [address] [facility] [address] [place] [address] Elida Topete MD Malignant neoplasm of upper-outer quadrant of right breast in female, estrogen receptor positive (HCC); Enlarged lymph nodes in armpit; Post-menopausal Discharge Disposition: Home or Self Care 05/07/2025 Travel from Last 3 Months Family History Medical History Relation Name Comments Clotting disorder Brother Breast cancer Cousin Daphne No Known Problem Father Pancreatic cancer Maternal Aunt Lisa Colon cancer Maternal Grandmother Stomach cancer Maternal Grandmother No Known Problem Maternal Uncle No Known Problem Other No Known Problem Paternal Aunt Throat cancer Paternal Grandfather Throat cancer Paternal Uncle Jose Manuel Relation Name Status Comments Brother Cousin Daphne Alive Father Alive Maternal Aunt Lisa Maternal Grandfather Maternal Grandmother Maternal Uncle Mother Alive Other Paternal Aunt Paternal Grandfather Paternal Grandmother Paternal Uncle Jose Manuel Social History Tobacco Use Types Packs/Day Years [...] often do you attend chur ch or mandaeism services? More than 4 times per year 08/31/2022 Do you belong to any clubs o r organizations such as muslim groups, unions, fraternal or athletic groups, or [...] Carlos Manuel rded Speak language other than Welsh at home Not on file 08/17/2023 Want [...] file Not on file Not on file Last Filed Vital Signs Vital Sign Reading [...] Mass Index 28.25 06/18/2025 9:27 AM EST Plan of Treatment Upcoming Encounters Date Type Department Care Team (Late st Contact Info) Description 09/24/2025 1:00 PM EST Appointment [facility] [place] [address] [place] [phone] Calvin Crenshaw MD [address] [place] [phone] 09/24/2025 1:30 PM EST Appointment [facility] [address] [place] [phone] George Brannon MD [address] [place], [place] [id number] 09/24/2025 2:30 PM EST Office Visit [facility] [address] [facility] [address] [place] [phone] George Brannon MD [address] [place], [place] [id number] 12/17/2025 10:30 AM EDT Office Visit [facility] - [place] [address] [place] [phone] Chana Vital APRN [address] [place], [place] [id number] Health Maintenance Due Date Last Done Comments CT Colonography 1969 Colonoscopy 1969 Colorectal Cancer Screening 1969 FOBT/FIT 1969 Fit-DNA (Cologuard) 1969 Sigmoidoscopy 1969 Depression Screening (12+) 1981 HIV Screening 1984 Hepatitis C Screening 1987 DTAP/TDAP/TD VACCINES (1 - Tdap) 1988 Pap Smear 1990 Lipid Panel 2014 Pneumococcal 50+ years (1 of 1 - PCV) 2019 Shingles Vaccine (Zoster) (1 of 2) 2019 COVID-19 VACCINE (3 - 2024-2 6 season) 2025 09/15/2021, 02/14/2021 Influenza Vaccine (#1) 2025 , 04/22/2021, 04/30/2020 Tobacco Cessation Counseling and Screening (12+) 06/18/2026 06/18/2025 Breast Cancer Screening 03/19/2027 03/19/20, 07/03/2024, 09/24/2023, Additional history exists Procedures Procedure Name Priority Date/Time Associated Diagnosis Comments DXA BONE DENSITY SPINE AND HIP Routine 05/07/2025 10:34 AM EDT Malignant neoplasm of upper-outer quadrant of right breast in female, estrogen receptor positive (HCC) Enlarged lymph nodes in armpit Post-menopausal MM DIGITAL MAMMO DIAGNOSTIC WITH MEL RIGHT Routine 03/19/2025 3:02 PM EDT Malignant neoplasm of right female breast, unspecified estrogen receptor status, unspecified site of breast (HCC) from Last 3 Months or Most Recently Relevant to Health Maintenance Results * DXA bone density spine and hip (05/07/2025 10:34 AM EDT) Anatomical Region Laterality Modality Bone Dual-energy X-ra y absorptiometry (DEXA) 05/07/2025 10:3 7 AM EDT Impressions 05/07/2025 11:28 AM EDT Osteopenia Narrative 05/07/2025 11:28 AM EDT BONE MINERAL DENSITY HISTORY: Postmenopausal female COMPARISON: November 2022 FINDINGS: Left femoral neck: 0.781 g/cm2 with corresponding T-score of -1.8. This is classified as borderline osteopenia. Lumbar spine, L1-L2: 1.091 g/cm2 with corresponding T-score of -0.7. This is classified as normal. FRAX: Major osteoporotic: 7.5% Hip: 0.8% Procedure Note Lazaro Hui MD - 05/07/2025 BONE MINERAL DENSITY HISTORY: Postmenopausal female COMPARISON: November 2022 FINDINGS: Left femoral neck: 0.781 g/cm2 with corresponding T-score of -1.8. This is classified as borderline osteopenia. Lumbar spine, L1-L2: 1.091 g/cm2 with corresponding T-score of -0.7. This is classified as normal. FRAX: Major osteoporotic: 7.5% Hip: 0.8% IMPRESSION: Osteopenia us Elida Topete MD IM DXA ORDERABLES Final Resul t * (ABNORMAL) MM digital mammo diagnostic with mel right (03/19/2025 3:02 PM EDT) Anatomical Region Laterality Modality Breast Right Mammography 03/19/2025 3:41 PM EDT Impressions 03/19/2025 3:58 PM EDT FINAL IMPRESSION: New postoperative changes in the right upper outer quadrant. Enlargement of a previously normal appearing level 1 right axillary lymph node since the prior exams. Bi-RADS: ACR BI-RADS 4: Suspicious RECOMMENDATIONS: Ultrasound-guided lymph node biopsy. This report will serve as the order for the recommended imaging studies/procedures. At our facility, a togiak marker is positioned over a visible skin lesion and a linear marker is placed over a scar. The results and recommendations were discussed with the patient on the day of her appointment. In addition, a written report in lay terms, including density notification, was given to the patient. Patient information was entered into a reminder system with a target due date for the next mammogram. Narrative 03/19/2025 3:58 PM EDT PROCEDURE: Right diagnostic mammogram with Digital Breast Tomosynthesis (DBT). Right axillary ultrasound REASON FOR EXAM: First follow-up post right upper outer quadrant lumpectomy for DCIS in August 2024. Also personal history of left lumpectomy in 2021. FAMILY HISTORY: No family history of breast cancer COMPARISON STUDY: [facility] 2024 through 2016 FINDINGS: Craniocaudal and mediolateral oblique images of the right breast were obtained in 2D and DBT modes. Synthesized views were reconstructed from DBT data. Breast density:There are scattered areas of fibroglandular density. Lumpectomy changes are present in the right upper outer quadrant. Oval partially obscured masses are present in the posterior upper-outer quadrant, unchanged from prior exams. There is no new mass, group of calcifications, or distortion to suggest malignancy. Notably, a level 1 axillary lymph node on the right has increased in size significantly when compared to the prior exams, measuring 11 mm, versus 6 mm on the prior examination. Ultrasound reveals a slightly thickened hypoechoic cortex measuring 3 mm. Ultrasound-guided biopsy is recommended. This examination was reviewed with the benefit of computer aided detection (CAD). Procedure Note Lorie Quezada MD - 03/19/2025 PROCEDURE: Right diagnostic mammogram with Digital Breast Tomosynthesis (DBT). Right axillary ultrasound REASON FOR EXAM: First follow-up post right upper outer quadrant lumpectomy for DCIS in August 2024. Also personal history of left lumpectomy in 2021. FAMILY HISTORY: No family history of breast cancer COMPARISON STUDY: [facility] 2024 FINDINGS: Craniocaudal and mediolateral oblique images of the right breast were obtained in 2D and DBT modes. Synthesized views were reconstructed from DBT data. Breast density:There are scattered areas of fibroglandular density. Lumpectomy changes are present in the right upper outer quadrant. Oval partially obscured masses are present in the posterior upper-outer quadrant, unchanged from prior exams. There is no new mass, group of calcifications, or distortion to suggest malignancy. Notably, a level 1 axillary lymph node on the right has increased in size significantly when compared to the prior exams, measuring 11 mm, versus 6 mm on the prior examination. Ultrasound reveals a slightly thickened hypoechoic cortex measuring 3 mm. Ultrasound-guided biopsy is recommended. This examination was reviewed with the benefit of computer aided detection (CAD). IMPRESSION: FINAL IMPRESSION: New postoperative changes in the right upper outer quadrant. Enlargement of a previously normal appearing level 1 right axillary lymph node since the prior exams. Bi-RADS: ACR BI-RADS 4: Suspicious RECOMMENDATIONS: Ultrasound-guided lymph node biopsy. This report will serve as the order for the recommended imaging studies/procedures. At our facility, a togiak marker is positioned over a visible skin lesion and a linear marker is placed over a scar. The results and recommendations were discussed with the patient on the day of her appointment. In addition, a written report in lay terms, including density notification, was given to the patient. Patient information was entered into a reminder system with a target due date for the next mammogram. us George Brannon MD IMG MAMMOGRAPHY ORDERABLES F inal Result from Last 3 Months or Most Recently Relevant to Health Maintenance Insurance BLUE CROSS/BLUE SHIELD Advance Directives For more information, please contact: [phone] * Full Code (Latest Code Status on File) Date Activated Date Inactivated Comments 09/10/2024 5:10 AM 09/10/2024 12:39 PM Care Teams Room Server Relationship Specialty Start Date End Date Giana Mercer, PAINT STRIPING MACHINE OPERATOR [address] [facility] [address], [facility] [address], [place] [address] PCP - General Nurse Practitioner 03/15/23 Elida Topete MD [address] [address] Medical Oncologist Hematology and Oncology 08/31/22 George Brannon MD [address] [facility] [address] [place], [place] [phone] Surgeon General Surgery 08/31/22 Deondre William MD [address] [place] [address] [place] [address] Referring Physician Adolescent Medicine 12/11/22
--- OUTSIDE RECORDS SUMMARY | 2025-07-28 15:48 | XMS_ITS | Encounter Summary ---
Author Organization [employer] ([place], [place], [place], [place], [place]) Address [address] [place] [address] Care Team Providers Care Police Guard Name Role Phone Elida Topete MD Unavailable [phone] George Brannon MD Unavailable [phone] Deondre William MD Unavailable [phone] Giana Mercer APRN Primary Care Provider Encounter Details Date Type Department Care Team (Latest Contact Info) Description 06/18/2025 Travel Social History Tobacco Use Types Packs/Day Years Used Date Smoking Tobacco: Never Passive Smoke Exposure: Past Smokeless Tobacco: Never Alcohol Use Standard Drinks/Week Comments Not Currently [...] often do you attend chur ch or orthodoxy services? More than 4 times per year 08/31/2022 Do you belong to any clubs o r organizations such as adventism groups, unions, fraternal or athletic groups, or [...] Carlos Manuel rded Speak language other than Jamaican at home Not on file 08/17/2023 Want [...] on file documented as of this encounter Functional Status * Communicable Disease Screening Question Answer Date of Assessment Author Have you been in contact with someone who was sick? No / Unsure 06/18/2025 9:16 AM Lynsey Murphy Do you have any of the following new or worsening symptoms? None of these 06/18/2025 9:16 AM Celestine Murphy documented as of this encounter Plan of Treatment Upcoming Encounters Date Type Department Care Team (Late st Contact Info) Description 09/24/2025 1:00 PM EST Appointment [facility] - [place] [address] [place] [phone] Calvin Crenshaw MD [address] [place] [phone] 09/24/2025 1:30 PM EST Appointment [facility] [address] [facility] [address] [place] [phone] George Brannon MD [address] [facility] [address] [place] [address] 09/24/2025 2:30 PM EST Office Visit [facility] [address] [facility] [address] [place] [phone] George Brannon MD [address] [facility] [address] [place] [address] 12/17/2025 10:30 AM EDT Office Visit [facility] - [place] [address] [place] [phone] Chana Vital APRN [address] [place] [address] documented as of this encounter Visit Diagnoses Not on filedocumented in this encounter Care Teams Police Guard Relationship Specialty Start Date End Date Giana Mercer, PUMPER GAGER APPRENTICE [address] [place] [address], [place], [place] [id number] PCP - General Nurse Practitioner 03/15/23 Elida Topete MD [address] [facility] [address] [place], [place] [phone] Medical Oncologist Hematology and Oncology 08/31/22 George Brannon MD [facility] [address] [place] [address] Surgeon General Surgery 08/31/22 Deondre William MD [address] [facility] [address] [place] [address] Referring Physician Adolescent Medicine 12/11/22 documented as of this encounter
--- OUTSIDE RECORDS SUMMARY | 2025-07-28 15:48 | XMS_ITS | Referral Summary ---
Author Organization [employer] ([place], [place], [place], [place], [place]) Address [address] [place] [address] Care Team Providers Care Core Rescuer Name Role Phone Elida Topete MD Unavailable [phone] George Brannon MD Unavailable Deondre William MD Unavailable [phone] Giana Mercer APRN Primary Care Provider Encounters Date Type Department Care Team Description 06/18/2025 Travel 06/18/2025 9:45 AM EST Office Visit [facility] - [place] [address] [place] [address] Elida Topete MD Malignant neoplasm of upper-outer quadrant of right breast in female, estrogen receptor positive (HCC) (Primary Dx); Osteopenia after menopause 05/07/2025 Travel 05/07/2025 10:00 AM EDT - 05/07/2025 11:59 PM EDT Hospital Encounter [facility] [address] [facility] [address] [place] [address] Elida Topete MD Malignant neoplasm of upper-outer quadrant of right breast in female, estrogen receptor positive (HCC); Enlarged lymph nodes in armpit; Post-menopausal Discharge Disposition: Home or Self Care from Last 3 Months Allergies Active Allergy Reactions Criticality Noted Date [...] Cancer Staging:Clinical:Stage 0(cTis (Paget), cN0, cM0, ER+, [place]-, HER2: Unknown) - Signed by Elida Topete MD on 08/14/2024 Pathologic stage from 09/10/2024:Stage Unknown(pTis (DCIS), pNX, cM0, G2, ER+, AZ+, HER2: Not Assessed) - Unsigned Hot flashes [...] from 07/27/2022:Stage 0(cTis (DCIS), cN0, cM0, ER+, AZ+) - Signed by Elida Topete MD on 07/27/2022 Pathologic stage from 08/22/2022:Stage 0(pTis (DCIS), cN0, cM0, G2, ER+, [place]+, HER2: Not Assessed) - Signed by Calvin Crenshaw MD on 08/31/2022 Social History Tobacco Use Types Packs/Day Years [...] often do you attend chur ch or scientology services? More than 4 times per year 08/31/2022 Do you belong to any clubs o r organizations such as pentecostal groups, unions, fraternal or athletic groups, or [...] Carlos Manuel rded Speak language other than Scottish at home Not on file 08/17/2023 Want [...] Info) Description 09/24/2025 1:00 PM EST Appointment [facility] - [place] [address] [place] [phone] Calvin Crenshaw MD [address] [place] [phone] 09/24/2025 1:30 PM EST Appointment [facility] [address] [facility] [address] [place] [phone] George Brannno MD [address] [facility] [address] [place] [address] 09/24/2025 2:30 PM EST Office Visit [facility] [address] [facility] [address] [place] [phone] George Brannon MD [address] [facility] [address] [facility] [address] [place], [place] [id number] 12/17/2025 10:30 AM EDT Office Visit [facility] - [place] [address] [place] [phone] Chana Vital APRN [address] [place] [address] Procedures Procedure Name Priority Date/Time Associated Diagnosis [...] 0.8% IMPRESSION: Osteopenia us Elida Topete MD IMG DXA ORDERABLES Final Resul t * (ABNORMAL) [...] recommended imaging studies/procedures. At our facility, a tonto apache marker is positioned over a visible skin [...] family history of breast cancer COMPARISON STUDY: [facility] 2024 FINDINGS: Craniocaudal and mediolateral oblique images [...] family history of breast cancer COMPARISON STUDY: [facility] 2024 FINDINGS: Craniocaudal and mediolateral oblique images [...] recommended imaging studies/procedures. At our facility, a tonto apache marker is positioned over a visible skin [...] target due date for the next mammogram. George Brannon MD IMG MAMMOGRAPHY ORDERABLES F inal Result from Last 3 Months or Most Recently Relevant to Health Maintenance Insurance BLUE CROSS/BLUE SHIELD Advance Directives For more information, please contact: [phone] * Full Code (Latest Code Status on File) Date Activated Date Inactivated Comments 09/10/2024 5:10 AM 09/10/2024 12:39 PM Care Teams Core Rescuer Relationship Specialty Start Date End Date Ruslan Giana Haque, HAND WOOD SANDER [address] [facility] [address], [place] [address] PCP - General Nurse Practitioner 03/15/23 Elida Topete MD [address] [facility] [address] [place] [address] Medical Oncologist Hematology and Oncology 08/31/22 George Brannon MD [facility] [address] [place] [address] Surgeon General Surgery 08/31/22 Deondre William MD [address] [facility] [address] [place] [address] Referring Physician Adolescent Medicine 12/11/22
--- OUTSIDE RECORDS SUMMARY | 2025-07-28 15:48 | XMS_ITS | Continuity of Care Document ---
Author Organization [facility]ef[facility] Address [address] [place] [address] Assessment No assessment recorded. Plan of Treatment Reminders Order Date Submit Date Provider Last Modified By Organization Details Last Modified Time Details Appointments None recorded. Lab rapid SARS CoV + SARS CoV 2 Ag, QL IA, respiratory specimen 2024 [facility], [address] [place] [address], [id number], 10:49:27 rapid flu (A+B) 2024 [facility], [address] [place] [address], [id number], 10:49:27 Referral None recorded. Procedures None recorded. Surgeries None recorded. Imaging None recorded. Medication Orders azithromyci n 250 mg tablet 2024 [facility], [address] [place] [address], [id number], 09:50:40 dexamethaso ne sodium phosphate 4 mg/mL injection solution 2024 [facility]buckler Not available 09:18:04 Patient TargetsNo targets recorded. Patient InstructionsNo instructions recorded. Reason for Referral None Reported. Results Created Date Observation Date Name Description Value Unit Range Abnormal Flag Note LastModifiedBy Organization Detail LastModifiedTime 07/07/20 25 07/07/2025 rapid SARS CoV + SARS CoV 2 Ag, QL IA, respi rator y speci men SARS CoV antigen Negati ve Not Available [address], [address], 07/07/2025 10:18:39 07/07/20 25 07/07/2025 rapid flu (A+B) Flu negati ve Not Available [address], [address], 07/07/2025 10:18:50 07/07/2007/07/2025 rapid flu (A+B) Type Both A & B Not Available [address], [address], 07/07/2025 10:18:50 Result Notes None recorded. Problems Name Problem SNOMED Code Status Onset Date Resolution Date Notes Provider Name and Address Organization Details Recorded Time History of malignant neoplasm of breast 432069814 Active 2024Jun Lyubov Yared deepak, VAISHALI - [facility] 10:05:03 Hypothyroidis m 66245593 Active 2024 Lyubov Yared deepak, VAISHALI - [facility] 10:05:25 Gastroesophag eal reflux disease 205396756 Active 2024 Lyubov Yared deepak, VAISHALI - [facility] 10:05:37 Problem Notes None recorded. Procedures Surgical History Date Name Laterality Status Provider Name and Address Organization Details Recorded Time lumpectomy of breast completed Lyubov Lomasler VAISHALI - [facility] 07/07/2025 10:06:57 partial hysterectomy completed Lyubov Yared VAISHALI - [facility] 07/07/2025 10:07:19 Imaging Results None recorded. Procedure Notes None recorded. Medical Equipment None Reported. Allergies Allergen ID Allergen Name Allergen Category Reaction Reaction Severity Criticality Documentation Date Start Date Code Code System Note Provider Name and Address Organization Details Recorded Time 098758 Product containin g penicilli n (product) medicatio n Not available Not available [facility] 07/07/2025 58256 8001 SNOMED Eugonda Fryman, PROFESSOR OF ARCHITECTURE [address], [place], [address], [place] - [facility] 5 10:47:18 976603 morphine medicatio n nausea Not available low 07/07/2025 7052 RxNorm Mar Lewis, PROFESSOR [employer]CHIT[employer] [address], [place], [address], [place] - [facility] 5 10:47:34 436911 latex environme nt,medica tion rash Not available high 07/07/2025 02062 91 RxNorm Mar Lewis, PROFESSOR [employer]CHITECTURE [address], [place], [address], [place] - [facility] 5 10:47:48 083674 clindamyc in Not available nausea Not available low 07/07/2025 2582 RxNorm Mar Lewis, PROFESSOR [employer] ARCHIT[employer]URE [address], [place], [address], [place] - [facility] 5 10:48:07 595543 cefdinir medicatio n Not available Not available low 07/14/20252022 20120 RxNorm Not Available tracy - External Data Service - prod 08:49:44 Medications Name Sig Start Date Stop Date Status Note LastModified by Organization Details LastModified Time atorvastati n 20 mg tablet Take 1 tablet every day by oral route. active Not Available Not Available No t Available azithromyci n 250 mg tablet TAKE 2 TABLETS BY MOUTH ON DAY 1, THEN TAKE 1 TABLET DAILY ON DAYS 2 THROUGH 5 07/14 completed Not Available Not Available Not Available prednisone 20 mg tablet Take 1 tablet twice a day by oral route for 5 days. 07/26 completed Not Available Not Available Not Available Zyrtec 10 mg tablet Take 1 tablet every day by oral route. active Not Available Not Available No t Available levothyroxi ne 100 mcg tablet Take 1 tablet every day by oral route. active Not Available Not Available No t Available tamoxifen 10 mg tablet Take 1 tablet every day by oral route. active Not Available Not Available No t Available hyoscyamine 0.125 mg sublingual tablet DISSOLVE 1 TABLET ON THE TONGUE 2 TIMES A DAY NEEDED FOR DIARRHEA active Not Available Not Available No t Available omeprazole 20 mg capsule,del ayed release TAKE ONE CAPSULE BY MOUTH 2 TIMES A DAY active Not Available Not Available No t Available dexamethaso ne sodium phosphate 4 mg/mL injection solution Inject 1 mL twice a day by intramusc ular route. 07/14 completed Not Available Not Available Not Available ciprofloxac in 0.3 %-dexametha sone 0.1 % ear drops,suspe nsion instill 3 drops into THE affected ear(s) 2 TIMES A DAY FOR 7 DAYS active Not Available Not Available No t Available omeprazole 20 mg daily 07/14 completed Not Available Not Available Not Available Flonase Allergy Relief 50 mcg/actuati on nasal spray,suspe nsion On[place] 1 spray every day by intranasa l route. active Not Available Not Available No t Available Vitals Date Recorded Body weight Heart rate Oxygen saturation Respiratory rate Pain severity - 0-10 verbal numeric rating [Score] - Reported Body temperature Systolic And Diastolic Provider Name and Address Organization Details Last Updated DateTime 5 36416.5 1 g 87 /min 98 % 18 /min 0 98 [degF] 118/64 mm[Hg] Lyubov [place] - [facility] 5 10:10:24 Social History Question Answer Notes LastModified by Organizat ion Details LastModified Time Tobacco Smoking Status Never Smoker Lyubov [place] null, [place] - [facility] 07/07/2025 10:06:14 Are You Blind Or Do You Have Difficulty Seeing? No Information not available 07/07/2025 Are You Deaf Or Do You Have Serious Difficulty Hearing? No Information not available 07/07/2025 What Was The Date Of Your Most Recent Tobacco Screening? 07/07/2025 Information not available 07/07/2025 What Is Your Relationship Status? Information not available 07/07/2025 Do You Have Smoke And Carbon Monoxide Detectors In Your Home? No Information not available 07/07/2025 Are You Passively Exposed To Smoke? No Information no t available 07/07/2025 Has Tobacco Cessation Counseling Been Provided? No Information not available 07/07/2025 Have You Recently Traveled Abroad? No Information not available 07/07/2025 Sex: Female Functional Status Question Answer Note LastModified by Organizat ion Details LastModified Time Do you use any illicit or recreational drugs? No Information not available 07/07/2025 Do you or have you ever used any other forms of tobacco or nicotine? No Information not available 07/07/2025 What is your level of alcohol consumption? None Information not available 07/07/2025 What is your status? Not Information no t available 07/07/2025 Mental Status None recorded. Family History Nothing Reported. Medical History No medical history recorded. Gynecological History Statement/Question Response Menses Monthly N If Post Menopausal, Age at Menopause 43 Obstetrics History GPAL:G 2 P 0 0 0 2 Type Value Living 2 Total 2 Immunizations Vaccine Type Date Status Note Provider Nam e and Address Organization Details Recorded Time Influenza, split virus, quadrivalent, PF 05/21/2019 completed Not Available [facility] 5 08:50:25 Influenza, recombinant, quadrivalent, PF 04/30/2020 completed Not Available [facility] 5 08:50:25 COVID-19 vaccine, vector-nr, rS-Ad26, PF, 0.5 mL 02/14/2021 completed Not Available [facility] 5 08:50:25 Influenza, recombinant, quadrivalent, PF 04/22/2021 completed Not Available [facility] 5 08:50:25 COVID-19, mRNA, LNP-S, PF, 100 mcg/0.5mL dose or 50 mcg/0.25mL dose 09/15/2021 completed Not Available [facility] 5 08:50:25 Influenza, recombinant, quadrivalent, PF 05/11/2022 completed Not Available [facility] 5 08:50:25 Influenza, split virus, quadrivalent, PF 06/05/2023 completed Not Available [facility] 5 08:50:25 Influenza, recombinant, quadrivalent, PF 05/29/2024 completed Not Available [facility] 5 08:50:25 Past Encounters Encounter ID Performer Location Encounter Start Date Encounter Closed Date Diagnosis/Indication Diagnosis SNOMED-CT Code Diagnosis ICD10 Code Diagnosis IMO Codes Diagnosis Note [id number] Mar Lewis APRN [facility] [address] [place] [address] 07/07/2025 09:39:25 07/07/2025 10:54:08 Streptococcal tonsillitis 73421452 J03.00 [id number] pt does not want strep swabcontac t precaution s discussedm eds discussed in detailif worsen or no improvemen t return Health Concerns Section Related Observation LastModified by Organization Detai ls LastModified Time None Recorded Concern Status LastModified by Organization Details LastModified Time None Recorded Payers Encounter Date Sequence Insurance Name Policy Number Policy Ellis Covered Member ID Ellis Member ID Guarantor Name 07/07/2025 1 [place] (HMO) [id number] Hailey Cracraft [id number] Hailey Cracraft Notes Date Note Type Note Provider Name and Address Organization Details Recorded Time 07/07/2025 text/html ROS as noted in the HPI 54 yr old female presents for cough and sore throat, headache, bilateral ear pain since . Denies fever or body aches. pt states her sore throat has gotten worse each day Mar Lewis APRN [address], [place], [address], [place] - [facility] 07/07/2025 10:51:36 OBGyn Episode No OBEpisode recorded.
--- OUTSIDE RECORDS SUMMARY | 2025-07-28 15:48 | XMS_ITS | Data Portability ---
Author Organization [facility] Address [address] [place] [address] Assessment No assessment recorded. Plan of Treatment Reminders Order Date Submit Date Provider Last Modified By Organization Details Last Modified Time Details Appointments None recorded. Lab rapid SARS CoV + SARS CoV 2 Ag, QL IA, respiratory specimen 2024 [facility], [address] [place] [address], [id number], 5 10:49:27 rapid flu (A+B) 2024 025 [facility], [address] [place] [address], [id number], 5 10:49:27 Referral None recorded. Procedures None recorded. Surgeries None recorded. Imaging None recorded. Medication Orders Ciprodex 0.3 %-0.1 % ear drops,suspe nsion 2024 025 [facility], [address] [place] [address], [id number], 5 15:22:10 prednisone 20 mg tablet 2024 025 [facility], [address] [place] [address], [id number], 5 05:01:48 azithromyci n 250 mg tablet 2024 025 [facility], [address] [address] [place], [id number], 09:50:40 dexamethaso ne sodium phosphate 4 mg/mL injection solution 2024 025 joeller Not available 09:18:04 Patient TargetsNo targets recorded. Patient InstructionsNo instructions recorded. Reason for Referral None Reported. Results Created Date Observation Date Name Description Value Unit Range Abnormal Flag Note LastModifiedBy Organization Detail LastModifiedTime 07/07/2007/07/2025 rapid SARS CoV + SARS CoV 2 Ag, QL IA, respi rator y speci men SARS CoV antigen Negati ve Not Available [address], [address], 07/07/2025 10:18:39 07/07/20 25 07/07/2025 rapid flu (A+B) Flu negati ve Not Available [address], [address], 07/07/2025 10:18:50 07/07/2007/07/2025 rapid flu (A+B) Type Both A & B Not Available [address], [address], 07/07/2025 10:18:50 Result Notes None recorded. Problems Name Problem SNOMED Code Status Onset Date Resolution Date Notes Provider Name and Address Organization Details Recorded Time History of malignant neoplasm of breast 136364877 Active 2024Jun VAISHALI Lopez - [facility] 10:05:03 Hypothyroidis m 02977852 Active 2024 VAISHALI Lopez - [facility] 10:05:25 Gastroesophag eal reflux disease 325755656 Active 2024 VAISHALI Lopez - [facility] 10:05:37 Problem Notes None recorded. Procedures Surgical History Date Name Laterality Status Provider Name and Address Organization Details Recorded Time lumpectomy of breast completed Lyubov [place] [facility] 07/07/2025 10:06:57 partial hysterectomy completed Lyubov Vail [facility] 07/07/2025 10:07:19 Imaging Results None recorded. Procedure Notes None recorded. Medical Equipment None Reported. Allergies Allergen ID Allergen Name Allergen Category Reaction Reaction Severity Criticality Documentation Date Start Date Code Code System Note Provider Name and Address Organization Details Recorded Time 816058 Product containin g penicilli n (product) medicatio n Not available Not available unabletoasse 07/07/2025 41056 8001 SNOMED Eugonda Joshua, [employer] [address], [place], [address], [place] - [facility] 5 10:47:18 471446 morphine medicatio n nausea Not available low 07/07/2025 7052 RxNorm Eugonda Joshua, [employer] [address], [place], [address], [place] - [facility] 5 10:47:34 111515 latex environme nt,medica tion rash Not available high 07/07/2025 97441 91 RxNorm Romarioonda Joshua, [employer] [address], [place], [address], [facility] - [facility] 5 10:47:48 140688 clindamyc in Not available nausea Not available low 07/07/2025 2582 RxNorm Rmoarioonda Joshua, [employer] [address], [place], [address], [place] - [facility] 5 10:48:07 724441 cefdinir medicatio n Not available Not available low 07/14/20252022 48452 RxNorm Not Available tracy - External Data Service - prod 5 08:49:44 Medications Name Sig Start Date Stop [...] Relief 50 mcg/actuati on nasal spray,suspe nsion [place] 1 spray every day by intranasa l route. active Not Available Not Available No t Available Vitals Date Recorded Body weight Heart rate Oxygen saturation Respiratory rate Pain severity - 0-10 verbal numeric rating [Score] - Reported Body temperature Systolic And Diastolic Provider Name and Address Organization Details Last Updated DateTime 5 42177.5 1 g 87 /min 98 % 18 /min 0 98 [degF] 118/64 mm[Hg] Lyubov [place] - [facility] 5 10:10:24 Date Recorded Body weight Body temperature Heart rate Oxygen saturation Respiratory rate Pain severity - 0-10 verbal numeric rating [Score] - Reported Systolic And Diastolic Provider Name and Address Organization Details Last Updated DateTime 5 28649.9 2 g 98.1 [degF] 85 /min 98 % 18 /min 0 118/78 mm[Hg] Lyubov [place] - [facility] 5 09:20:03 Social History Question Answer Notes LastModified by Organizat ion Details LastModified Time Tobacco Smoking Status Never Smoker Lyubov [place], [place] - [facility] 07/07/2025 10:06:14 Are You [...] virus, quadrivalent, PF 05/21/2019 completed Not Available [facility] 5 08:50:25 Influenza, recombinant, quadrivalent, PF 04/30/2020 completed Not Available [facility] 5 08:50:25 COVID-19 vaccine, vector-nr, rS-Ad26, PF, 0.5 mL 02/14/2021 completed Not Available [facility] 5 08:50:25 Influenza, recombinant, quadrivalent, PF 04/22/2021 completed Not Available [facility] 5 08:50:25 COVID-19, mRNA, LNP-S, PF, 100 mcg/0.5mL dose or 50 mcg/0.25mL dose 09/15/2021 completed Not Available [facility] 5 08:50:25 Influenza, recombinant, quadrivalent, PF 05/11/2022 completed Not Available [facility] 5 08:50:25 Influenza, split virus, quadrivalent, PF 06/05/2023 completed Not Available [facility] 5 08:50:25 Influenza, recombinant, quadrivalent, PF 05/29/2024 completed Not Available [facility] 5 08:50:25 Past Encounters Encounter ID Performer Location Encounter Start Date Encounter Closed Date Diagnosis/Indication Diagnosis SNOMED-CT Code Diagnosis ICD10 Code Diagnosis IMO Codes Diagnosis Note [id number] Mar Lewis [address] [address] 07/07/2025 09:39:25 07/07/2025 10:54:08 Streptococcal tonsillitis 21485070 J03.00 [id number] pt does not want strep swabcontac t precaution s discussedm eds discussed in detailif worsen or no improvemen t return [id number] Mar Lewis APRN [address] [address] 07/14/2025 08:49:27 07/14/2025 09:28:14 Acute left otitis media 040509555 H66.92 4875981 Acute maxi llary sinusitis 27123649 J01.00 34372600 Health Concerns Section Related Observation LastModified by Organization Detai ls LastModified Time None Recorded Concern Status LastModified by Organization Details LastModified Time None Recorded Advance Directives Directive None Recorded Payers Insurance Date Sequence Insurance Name Policy Number Policy Ellis Covered Member ID Ellis Member ID Guarantor Name 07/13/2025 1 [place] (HMO) [id number] Hailey Cracraft [id number] Hailey Cracraft Notes Date Note Type Note Provider Name and Address Organization Details Recorded Time 07/07/2025 text/html ROS as noted in the HPI 54 yr old female presents for cough and sore throat, headache, bilateral ear pain since . Denies fever or body aches. pt states her sore throat has gotten worse each day Mar Lewis, KASSIE [address], [place], [address], [place] - [facility] 07/07/2025 10:51:36 07/14/2025 text/html ROS as noted in the HPI 54 yr old female presents for continued left ear pain, sinus drainage and cough. Mar Lewis, KASSIE [address], [place], [address], [place] - [facility] 07/14/2025 09:36:55 OBGyn Episode No OBEpisode recorded.
--- OUTSIDE RECORDS SUMMARY | 2025-07-28 15:48 | XMS_ITS | Continuity of Care Document ---
Author Organization [facility] Estefani Chen [facility] Address [address] [place] [address] Assessment No assessment recorded. Plan of Treatment Reminders Order Date Submit Date Provider Last Modified By Organization Details Last Modified Time Details Appointments None recorded. Lab None recorded. Referral None recorded. Procedures None recorded. Surgeries None recorded. Imaging None recorded. Medication Orders Ciprodex 0.3 %-0.1 % ear drops,suspe nsion 2024 025 [facility], [address] [place] [address], [id number], 5 15:22:10 prednisone 20 mg tablet 2024 025 [facility], [address] [place] [address], [id number], 5 05:01:48 Patient TargetsNo targets recorded. Patient InstructionsNo instructions recorded. Reason for Referral None Reported. Results Created Date Observation Date Name Description Value Unit Range Abnormal Flag Note LastModifiedBy Organization Detail LastModifiedTime 07/07/2007/07/2025 rapid SARS CoV + SARS CoV 2 Ag, QL IA, respi rator y speci men SARS CoV antigen Negati ve Not Available [address], [address], 07/07/2025 10:18:39 07/07/20 25 07/07/2025 rapid flu (A+B) Flu negati ve Not Available [address], [address], 07/07/2025 10:18:50 07/07/20 25 07/07/2025 rapid flu (A+B) Type Both A & B Not Available [facility] [address] [facility], [place], [address], 07/07/2025 10:18:50 Result Notes None recorded. Problems Name Problem SNOMED Code Status Onset Date Resolution Date Notes Provider Name and Address Organization Details Recorded Time History of malignant neoplasm of breast 276236694 Active 2024Jun Lyubovlinda sotelo, [facility] - [facility] 10:05:03 Hypothyroidis m 70004570 Active 2024 Lyubov sotelo, [facility]I - [facility] 10:05:25 Gastroesophag eal reflux disease 878095922 Active 2024 Lyubov sotelo, VAISHALI - [facility] 10:05:37 Problem Notes None recorded. Procedures Surgical History Date Name Laterality Status Provider Name and Address Organization Details Recorded Time lumpectomy of breast completed Lyubov [place] - [facility] 07/07/2025 10:06:57 partial hysterectomy completed Lyubov [place] - [facility] 07/07/2025 10:07:19 Imaging Results None recorded. Procedure Notes None recorded. Medical Equipment None Reported. Allergies Allergen ID Allergen Name Allergen Category Reaction Reaction Severity Criticality Documentation Date Start Date Code Code System Note Provider Name and Address Organization Details Recorded Time 17190304 Product containin g penicilli n (product) medicatio n Not available Not available unabletoasse ss 07/07/2025 80019 8001 SNOMED Eugonda Joshua, [employer] [address], [place], [address], [place] - [facility] 5 10:47:18 713346 morphine medicatio n nausea Not available low 07/07/2025 7052 RxNorm Eugonda Joshua, [employer] [address], [place], [address], [place] - [facility] 5 10:47:34 928059 latex environme nt,medica tion rash Not available high 07/07/2025 40386 91 RxNorm Mar Lewis [employer] [address], [place], [address], [place] - [facility] 5 10:47:48 942906 clindamyc in Not available nausea Not available low 07/07/2025 2582 RxNorm Mar Lewis [employer] [address], [place], [address], [place] - [facility] 5 10:48:07 317181 cefdinir medicatio n Not available Not available low 07/14/20252022 78046 RxNorm Not Available tracy - External Data [...] Relief 50 mcg/actuati on nasal spray,suspe nsion [place] 1 spray every day by intranasa l route. active Not Available Not Available No t Available Vitals Date Recorded Body weight Body temperature Heart rate Oxygen saturation Respiratory rate Pain severity - 0-10 verbal numeric rating [Score] - Reported Systolic And Diastolic Provider Name and Address Organization Details Last Updated DateTime 5 72207.9 2 g 98.1 [degF] 85 /min 98 % 18 /min 0 118/78 mm[Hg] Lyubov [place] - [facility] 09:20:03 Social History Question Answer Notes LastModified by [email or web address] Details LastModified Time Tobacco Smoking Status Never [...] virus, quadrivalent, PF 05/21/2019 completed Not Available [facility] 5 08:50:25 Influenza, recombinant, quadrivalent, PF 04/30/2020 completed Not Available [facility] 5 08:50:25 COVID-19 vaccine, vector-nr, rS-Ad26, PF, 0.5 mL 02/14/2021 completed Not Available [facility] 5 08:50:25 Influenza, recombinant, quadrivalent, PF 04/22/2021 completed Not Available [facility] 5 08:50:25 COVID-19, mRNA, LNP-S, PF, 100 mcg/0.5mL dose or 50 mcg/0.25mL dose 09/15/2021 completed Not Available [facility] 5 08:50:25 Influenza, recombinant, quadrivalent, PF 05/11/2022 completed Not Available [facility] 5 08:50:25 Influenza, split virus, quadrivalent, PF 06/05/2023 completed Not Available [facility] 5 08:50:25 Influenza, recombinant, quadrivalent, PF 05/29/2024 completed Not Available [facility] 5 08:50:25 Past Encounters Encounter ID Performer Location Encounter Start Date Encounter Closed Date Diagnosis/Indication Diagnosis SNOMED-CT Code Diagnosis ICD10 Code Diagnosis IMO Codes Diagnosis Note [id number] Mar Lewis APRN [address] [address] 07/07/2025 09:39:25 07/07/2025 10:54:08 Streptococcal tonsillitis 30693501 J03.00 [id number] pt does not want strep swabcontac t precaution s discussedm eds discussed in detailif worsen or no improvemen t return [id number] Mar Lewis APRN [facility] [address] [place] [address] 07/14/2025 08:49:27 07/14/2025 09:28:14 Acute left otitis media 313101245 H66.92 [id number] Acute maxi llary sinusitis 78232161 J01.00 [id number] Health Concerns Section Related Observation LastModified by Organization Detai ls LastModified Time None Recorded Concern Status LastModified by Organization Details LastModified Time None Recorded Payers Encounter Date Sequence Insurance Name Policy Number Policy Ellis Covered Member ID Ellis Member ID Guarantor Name 07/14/2025 1 [employer] [employer] [place] (HMO) [id number] Hailey Cracraft [id number] Hailey Cracraft Notes Date Note Type Note Provider Name and Address Organization Details Recorded Time 07/14/2025 text/html ROS as noted in the HPI 54 yr old female presents for continued left ear pain, sinus drainage and cough. Mar Lewis APRN [address], [place], [address], [place] - [facility] 07/14/2025 09:36:55 OBGyn Episode No OBEpisode recorded.
--- OUTSIDE RECORDS SUMMARY | 2025-07-28 15:48 | XMS_ITS | Patient Health Record ---
Author Organization [facility] Address [address] [place] [address] Care Team Providers Care Shaper Machine Hand Name Role Phone Giana Mercer Primary Care Provider GIANA Mercer APRN Unavailable Unavailable Che Ricketts Unavailable [phone] Migration, Provider Unavailable Unavailable Allergies Allergen (clinical drug ingredient) Drug/Non Drug Allergy documented on EMR Reaction Allergy Type Onset Date Status Latex LATEX (uncoded) Unknown Allergy Acti ve OMNICEF (uncoded) Unknown Allergy Ac tive clindamycin Clindamycin vomitting Drug Allergy Act davon morphine Morphine stomach upset Drug Allergy Act davon Penicillin Unknown Drug Allergy Active Results Component Value Reference Range Flag Notes LIPID PANEL, STANDARD (7600) Reviewed date:07/20/2025 08:49:48 AM Interpretation: Performing Lab:[place], [facility] [id number] [facility], [facility] HealthQwiwDP[address] Joseph Pruitt Notes/Report: NON-FASTING; NON-FASTING; NON-FASTING; NON-FASTING; NON-FAST FASTING:YES FASTING: YES CHOLESTEROL, TOTAL 191 <200 mg/dL N HDL CHOLESTEROL 47 > OR = 50 mg/dL L TRIGLYCERIDES 155 <150 mg/dL H LDL-CHOLESTEROL 117 H Reference range: <100 Desirable range <100 mg/dL for primary prevention; <70 mg/dL for patients with CHD or diabetic patients with > or = 2 CHD risk factors. LDL-C is now calculated using the Hemanth-Wright calculation, which is a validated novel method providing better accuracy than the Friedewald equation in the estimation of LDL-C. Hemanth SS et al. GENIE. 2013;310(19): 1408-7173 (http://education.PostRank.com/faq/F AQ164) CHOL/HDLC RATIO 4.1 <5.0 (calc) N NON HDL CHOLESTEROL 144 <130 mg/dL (calc) H For patients with diabetes plus 1 major ASCVD risk factor, treating to a non-HDL-C goal of <100 mg/dL (LDL-C of <70 mg/dL) is considered a therapeutic option. COMPREHENSIVE METABOLIC PANE L (98251) Reviewed date:07/20/2025 08:49:48 AM Interpretation: Performing Lab:[place], [facility] [place] Joseph Pruitt Notes/Report: NON-FASTING; NON-FASTING; NON-FASTING; NON-FASTING; NON-FAST FASTING:YES FASTING: YES GLUCOSE 95 65-99 mg/dL N Fasting reference interval UREA NITROGEN (BUN) 14 7-25 mg/dL N CREATININE 0.98 0.50-1.03 mg/dL N EGFR 68 > OR = 60 mL/min/1.73m2 N BUN/CREATININE RATIO SEE NOTE: 6-22 (calc) Not Reported: BUN and Creatinine are within reference range. SODIUM 142 135-146 mmol/L N POTASSIUM 3.4 3.5-5.3 mmol/L L CHLORIDE 104 98-110 mmol/L N CARBON DIOXIDE 26 20-32 mmol/L N CALCIUM 9.5 8.6-10.4 mg/dL N PROTEIN, TOTAL 7.1 6.1-8.1 g/dL N ALBUMIN 4.5 3.6-5.1 g/dL N GLOBULIN 2.6 1.9-3.7 g/dL (calc) N ALBUMIN/GLOBULIN RATIO 1.7 1.0-2.5 (calc) N BILIRUBIN, TOTAL 0.5 0.2-1.2 mg/dL N ALKALINE PHOSPHATASE 121 37-153 U/L N AST 14 10-35 U/L N ALT 13 6-29 U/L N CBC (INCLUDES DIFF/PLT) (329 9) Reviewed date:07/20/2025 08:49:48 AM Interpretation: Performing Lab:CB, [facility] [address], [facility] HealthYdccNQ[address] Joseph Pruitt Notes/Report: NON-FASTING; NON-FASTING; NON-FASTING; NON-FASTING; NON-FAST FASTING:YES FASTING: YES WHITE BLOOD CELL COUNT 11.8 3.8-10.8 Thousand/uL H RED BLOOD CELL COUNT 4.39 3.80-5.10 Million/uL N HEMOGLOBIN 12.9 11.7-15.5 g/dL N HEMATOCRIT 38.7 35.9-46.0 % N MCV 88.2 81.4-101.7 fL N MCH 29.4 27.0-33.0 pg N MCHC 33.3 31.6-35.4 g/dL N RDW 12.9 11.0-15.0 % N PLATELET COUNT 263 140-400 Thousand/uL N MPV 11.5 7.5-12.5 fL N ABSOLUTE NEUTROPHILS 9027 9715-9040 cells/uL H ABSOLUTE LYMPHOCYTES 2183 850-3900 cells/uL N ABSOLUTE MONOCYTES 543 200-950 cells/uL N ABSOLUTE EOSINOPHILS 12 15-500 cells/uL L ABSOLUTE BASOPHILS 35 0-200 cells/uL N NEUTROPHILS 76.5 N LYMPHOCYTES 18.5 N MONOCYTES 4.6 N EOSINOPHILS 0.1 N BASOPHILS 0.3 N VITAMIN B12 (927) Reviewed date:07/20/2025 08:49:48 AM Interpretation: Performing Lab:[place] [facility] [email or web address], [facility] HealthOowdEC[address] Joseph Pruitt Notes/Report: NON-FASTING; NON-FASTING; NON-FASTING; NON-FASTING; NON-FAST FASTING:YES FASTING: YES VITAMIN B12 049 370-5471 pg/mL N TSH W/REFLEX TO FT4 (57629) Reviewed date:07/20/2025 08:49:48 AM Interpretation: Performing Lab:[facility], [facility] HealthXybyYF[address] Joseph Pruitt Notes/Report: NON-FASTING; NON-FASTING; NON-FASTING; NON-FASTING; NON-FAST FASTING:YES FASTING: YES TSH W/REFLEX TO FT4 2.11 N Reference Range > or = 20 Years 0.40-4.50 Ranges First trimester 0.26-2.66 Second trimester 0.55-2.73 Third trimester 0.43-2.91 VITAMIN D,25-OH,TOTAL,IA (17 306) Reviewed date:07/20/2025 08:49:48 AM Interpretation: Performing Lab:[facility] [facility] [facility], John PorrasRxcsWM[address] Joseph Rupinder Pruitt Notes/Report: NON-FASTING; NON-FASTING; NON-FASTING; NON-FASTING; NON-FAST FASTING:YES FASTING: YES VITAMIN D,25-OH,TOTAL,IA 36 30-100 ng/mL N Vitamin D Status 25-OH Vitamin D: Deficiency: <20 ng/mL Insufficiency: 20 - 29 ng/mL Optimal: > or = 30 ng/mL For 25-OH Vitamin D testing on patients on D2-supplementation and patients for whom quantitation of D2 and D3 fractions is required, the QuestAssureD(TM) 25-OH VIT D, (D2,D3), LC/MS/MS is recommended: order code 03635 (patients >2yrs). See Note 1 Note 1 For additional information, please refer to http://education.[employer].Lagiar/faq/FA Q199 (This link is being provided for informational/ educational purposes only.) Rapid Covid/Flu A-B Combo Reviewed date:04/25/2025 07:05:25 PM Interpretation: Performing Lab: Notes/Report: Rapid Covid negative Flu A negative Flu B negative Medications Medication SIG (Take, Route, Frequency, Duration) Notes Start Date End Date Status Ondansetron 4 MG Tablet Disintegrating 1 tablet on the tongue and allow to dissolve Orally every 6 hours; Duration: 30 days As needed 02/26/2025 Active Meclizine HCl 25 MG Tablet 1 tab(s) oral ly 3 times a day prn vertigo; Duration: 30 days PRN Active Fluticasone Propionate 50 MCG/ACT Suspension 2 sprays in each nostril twice a day prn; Duration: 30 days Active Levothyroxine Sodium 100 MCG Tablet 1 tab(s) orally once a day; Duration: 90 days Active ZyrTEC Allergy 10 MG Tablet 1 tab(s) ora lly once a day; Duration: 90 days Active Ciprofloxacin-dexAMETHasone 0.3-0.1 % Suspension 3 drops Otic Twice a day Active predniSONE 20 MG Tablet 1 tablet with fo od or milk Orally twice a day x 5 days Active Metamucil Smooth Texture 58.6 % Powder as directed orally once a day prn Active Tamoxifen Citrate 10 MG Tablet 1 tablet Orally Once a day Active Atorvastatin Calcium 40 MG Tablet 1 tab(s) orally once a day; Duration: 90 days Active Omeprazole 20 mg Capsule Delayed Release TAKE ONE CAPSULE BY MOUTH 2 TIMES A DAY; Duration: 30 Active Immunizations Vaccine Route Administration Date Status Comme nts Flublok IM Intramuscular 04/30/2020 Administered Flublok IM Intramuscular 04/22/2021 Administered Flublok IM Intramuscular 05/11/2022 Administered Flublok IM Intramuscular 05/29/2024 Administered FLUZONE 6MO - OLDER IM Intramuscular 05/21/2019 Administer ed FLUZONE 6MO - OLDER IM Intramuscular 06/05/2023 Administer ed Social History Social History Additional Details Category Social Info Options Details Social History Occupation: stay at home mom Travel outside [place]: no Alcohol: no Sexually active: yes Recreational drug use: no Exercise: no Home smoke detector use: yes Caffeine: yes frequency: 2 tea s a day Living Will No Problems Problem Type SNOMED Code ICD Code Onset Dates Problem Status W/U Status Risk Notes Problem Malignant neoplasm of upper-outer quadrant of female breast (567581951) 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) Active confirmed Problem Malignant neoplasm of female breast (770594710) Malignant neoplasm of unspecified site of left female breast (C50.912) Active confirmed Problem Hypothyroidism (16981550) Hypothyroidism, unspecified (E03.9) Active confirmed Problem Mixed hyperlipidemia (214066716) Mixed hyperlipidemia (E78.2) Active confirmed Problem Irritable bowel syndrome with diarrhea (920314022) Irritable bowel syndrome with diarrhea (K58.0) Active confirmed Problem Pain of right knee region (finding) (912243814768355) Pain in right knee (M25.561) Active confirmed Problem Pain of left knee joint (finding) (265477030061139) Pain in left knee (M25.562) Active confirmed Problem Mixed anxiety and depressive disorder (206166652) Depression with anxiety (F41.8) Active confirmed Problem Essential hypertension (26279244) Essential hypertension (I10) Active confirmed Problem Vitamin B12 deficiency (non anemic) (76015414) B12 deficiency (E53.8) Active confirmed Problem Gastroesophageal reflux disease (377589605) GERD without esophagitis (K21.9) Active confirmed Problem Allergic rhinitis (37266985) Chronic allergic rhinitis (J30.9) Active confirmed Problem Chronic pain (41097574) Other chronic pain (G89.29) Active confirmed Problem Gastroesophageal reflux disease with esophagitis (disorder) (832082448) GERD with esophagitis (K21.0) Active confirmed Problem Body mass index 30+ - obesity (492134575) BMI 30.0-30.9,adult (Z68.30) Active confirmed Problem Generalized anxiety disorder (96152316) JHONY (generalized anxiety disorder) (F41.1) Active confirmed Problem Hyperlipidaemia (73153059) Hyperlipidemia, unspecified hyperlipidemia type (E78.5) Active confirmed Problem Benign paroxysmal positional vertigo (253222572) Benign paroxysmal positional vertigo of right ear (H81.11) Active confirmed Problem Irritable bowel syndrome characterized by constipation (301646333) Irritable bowel syndrome with constipation (K58.1) Active confirmed Problem Irritable bowel syndrome (70895541) Irritable bowel syndrome with both constipation and diarrhea (K58.2) Active confirmed Problem Menopause (287408740) Vasomotor symptoms due to menopause (N95.1) Active confirmed Problem Plantar fasciitis of left foot (46993745138250235) Plantar fasciitis of left foot (M72.2) Active confirmed Problem Cerda's neuroma of left foot (503327509199717) Cerda's neuroma of left foot (G57.62) Active confirmed Problem Hepatic flexure syndrome (813305030) 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) Active confirmed Problem Gastroesophageal reflux disease with esophagitis (disorder) (986302161) Gastro-esophageal reflux disease with esophagitis, without bleeding (K21.00) Active confirmed Problem Pain in female genitalia on intercourse (25810023) Dyspareunia, female (N94.10) Active confirmed Vital Signs Heart Rate 78 /min 07/16/2025 Temperature 97.8 degrees Fahrenheit 07/16/2025 Blood pressure diastolic 90 mm Hg 07/16/2025 Height 68.5 in 07/16/2025 Blood pressure systolic 144 mm Hg 07/16/2025 Weight 192 lbs 07/16/2025 BMI 28.77 kg/m2 07/16/2025 Encounters Encounter Location Date Provider Diagnosis [facility] [address] [place] [address] [place] [address] 11/01/2024 Provider Migration Depression with anxiety F41.8 and Leg edema R60.0 [facility] [address] [place] [address] [place] [address] 09/27/2024 Giana McNees Leg edema R60.0 ; Depression with anxiety F41.8 ; Hot flashes R23.2 ; Malignant neoplasm of upper-outer quadrant of right female breast C50.411 ; Estrogen receptor negative status [ER-] Z17.1 and Frequent headaches R51.9 [facility] [address] [place] [address] [place] [address] 01/22/2025 Giana McNees Hypothyroidism, unspecified E03.9 ; B12 deficiency E53.8 ; Irritable bowel syndrome with diarrhea K58.0 ; Essential hypertension I10 ; JHONY (generalized anxiety disorder) F41.1 ; Malignant neoplasm of unspecified site of left female breast C50.912 ; Mixed hyperlipidemia E78.2 and Vaginal yeast infection B37.31 [facility] [address] [place] [address] [place] [address] 02/26/2025 Giana McNees Hot flashes R23.2 ; Non-recurrent acute serous otitis media of both ears H65.03 and Essential hypertension I10 [facility] [address] [place] [address] [place] [address] 04/23/2025 Che Liliam Febrile illness R50. 9 and Acute URI J06.9 [facility] [address] [place] [address] [place] [address] 07/16/2025 Giana McNees Hypothyroidism, unspecified E03.9 ; Routine medical exam Z00.00 ; B12 deficiency E53.8 ; Irritable bowel syndrome with diarrhea K58.0 ; BMI 28.0-28.9,adult Z68.28 ; Essential hypertension I10 ; JHONY (generalized anxiety disorder) F41.1 ; Malignant neoplasm of unspecified site of left female breast C50.912 ; Mixed hyperlipidemia E78.2 ; Recurrent acute serous otitis media of both ears H65.06 ; Fatigue, unspecified type R53.83 ; Dyspareunia, female N94.10 ; Recurrent cancer of right breast C50.911 and GERD without esophagitis K21.9 [facility] [address] [place] [address] 09/27/2024 Giana McNees [facility] [address] [place] [address] 02/26/2025 Giana McNees [facility] [address] [facility] [address] [place] [address] 07/20/2025 Giana McNees [facility] [address] [place] [address] 07/20/2025 Giana McNees Dyspareunia, female N94.10 ; Malignant neoplasm of unspecified site of left female breast C50.912 and Recurrent cancer of right breast C50.911 Assessments Encounter Date Diagnosis (ICD Code) Assessment Notes Treatment Notes Treatment Clinical Notes Section Notes 09/27/2024 Depression with anxiety (ICD-10 - F41.8) Start low dose SSRI which should also help with her hot flashes. Discussed rationale for pharmacotherapy , and discussed MOA of med. Discussed time course of expected improvements, and discussed side effect profile - and need for urgent evaluation if agitation or worsening mood occurs. Discussed need for f/u in office. 09/27/2024 Leg edema (ICD-10 - R60.0) Mild today on exam. Compression hose, limit salt intake, low dose lasix PRN 11/01/2024 Depression with anxiety (ICD-10 - F41.8) 11/01/2024 Leg edema (ICD-10 - R60.0) 01/22/2025 Hypothyroidism, unspecified (ICD-10 - E03.9) Continue synthroid 01/22/2025 B12 deficiency (ICD-10 - E53.8) Continue b12 replacement 02/26/2025 Hot flashes (ICD-10 - R23.2) Start effexor. Discussed rationale for pharmacotherapy , and discussed MOA of med. Discussed time course of expected improvements, and discussed side effect profile - and need for urgent evaluation if agitation or worsening mood occurs. Discussed need for f/u in office. 02/26/2025 Non-recurrent acute serous otitis media of both ears (ICD-10 - H65.03) Reassurance, no acute injection. Continue allergy meds. Supportive care discussed 04/23/2025 Febrile illness (ICD-10 - R50.9) 04/23/2025 Acute URI (ICD-10 - J06.9) Discussed the etiology and expected course of a viral URI. Discussed supportive care and symptom management with PO fluids, Antipyretics, and antihistamines. Discussed the rational for not prescribing antibiotics for viral infection. Discussed the signs and symptoms of worsening condition and need for reassessment in clinic or ED. 07/16/2025 Hypothyroidism, unspecified (ICD-10 - E03.9) Will check TSH and adjust synthroid as indicated 07/16/2025 Routine medical exam (ICD-10 - Z00.00) Mammogram and colonoscopy UTD Immunizations UTD Pap UTD Routine labs drawn today 07/20/2025 Dyspareunia, female (ICD-10 - N94.10) 07/20/2025 Malignant neoplasm of unspecified site of left female breast (ICD-10 - C50.912) 07/16/2025 B12 deficiency (ICD-10 - E53.8) Will check b12/cbc to confirm stability 02/26/2025 Essential hypertension (ICD-10 - I10) DASH diet, exercise, weight loss. WIll revisit at FU in 4 weeks 01/22/2025 Irritable bowel syndrome with diarrhea (ICD-10 - K58.0) At baseline. 09/27/2024 Hot flashes (ICD-10 - R23.2) 01/22/2025 Essential hypertension (ICD-10 - I10) A little elevated today, will continue to monitor 09/27/2024 Malignant neoplasm of upper-outer quadrant of right female breast (ICD-10 - C50.411) Keep FU with oncology for radiation treatments 07/16/2025 Irritable bowel syndrome with diarrhea (ICD-10 - K58.0) No recent symptoms. 07/20/2025 Recurrent cancer of right breast (ICD-10 - C50.911) 07/16/2025 BMI 28.0-28.9,adult (ICD-10 - Z68.28) BMI stable. Plans to start diet, exercise regimen after the holidays 09/27/2024 Estrogen receptor negative status [ER-] (ICD-10 - Z17.1) 01/22/2025 JHONY (generalized anxiety disorder) (ICD-10 - F41.1) Stable off of medications 09/27/2024 Frequent headaches (ICD-10 - R51.9) May be related to blood pressure. Check b/p at home 2-3 days a week. Record on log. Bring log to FU in 3 weeks 01/22/2025 Malignant neoplasm of unspecified site of left female breast (ICD-10 - C50.912) Keep FU with oncology 07/16/2025 Essential hypertension (ICD-10 - I10) Above goal today, if this persists will add ARB, will continue to monitor 07/16/2025 JHONY (generalized anxiety disorder) (ICD-10 - F41.1) Stable off of medications 01/22/2025 Mixed hyperlipidemia (ICD-10 - E78.2) Tolerating statin well. LDL with good control 01/22/2025 Vaginal yeast infection (ICD-10 - B37.31) Keep clean and dry White cotton underwear Open to air at night Diflucan as above 07/16/2025 Malignant neoplasm of unspecified site of left female breast (ICD-10 - C50.912) Keep FU with oncology 07/16/2025 Mixed hyperlipidemia (ICD-10 - E78.2) Tolerating statin well. Fasting lipid panel drawn today 07/16/2025 Recurrent acute serous otitis media of both ears (ICD-10 - H65.06) Reassurance, no acute infection. 07/16/2025 Fatigue, unspecified type (ICD-10 - R53.83) Chronic, intermittent, likely benign. Will check labs 07/16/2025 Dyspareunia, female (ICD-10 - N94.10) Will obtain TV US for dyspareunia and ovary evaluation. 07/16/2025 Recurrent cancer of right breast (ICD-10 - C50.911) Cont tamoxifen. Keep FU with oncology 07/16/2025 GERD without esophagitis (ICD-10 - K21.9) Well controlled on PPI Plan Of Treatment Pending Test Test Name Order Date Ultrasound : Pelvis, Transvaginal 2024 Ultrasound : Breast, Right 06/18/2009 Mammogram : Left breast 12/29/2009 H-CBC with AUTO DIFF 10/14/2015 H-VITAMIN B12 10/14/2015 H-VITAMIN B12 04/27/2016 H-CMP 04/27/2016 H-CMP 10/14/2015 H-TSH 10/14/2015 H-TSH 04/27/2016 C-CBC 02/26/2015 C-CMP 09/24/2020 C-CMP 10/20/2017 C-LIPID PANEL 09/24/2020 C-TSH 01/09/2017 C-TSH 02/26/2015 C-TSH 10/20/2017 C-TSH 05/21/2019 C-VITAMIN B12 02/26/2015 C-VITAMIN B12 09/24/2020 C-VITAMIN D, 1,25-DIHYDROXY 01/10/2011 C-FACTOR V LEIDEN MUTATION 03/22/2015 M-Vitamin B12 04/22/2021 Ultrasound: Transvaginal 07/20/2025 Future Test Test Name Order Date Mammogram : Bilateral 12/10/2009 Insurance Providers Payer Name Payer Address Payer Phone Subscriber Number Group Number Insured Name Patient Relationship to Insured Coverage Start Date Coverage End Date [facility] [address] [place] [address] [id number] Hailey Goodwin Self - patient is the insured Medications Administered Medication Instructions Date of Administration Dosage Notes Cyanocobalamin/B-12 Pt's Own Medication 10/23/2014 1 mL Cyanocobalamin/B-12 Pt's Own Medication 10/29/2014 1 mL Cyanocobalamin/B-12 Pt's Own Medication 11/06/2014 1 mL Cyanocobalamin/B-12 Pt's Own Medication 11/13/2014 1 mL Cyanocobalamin/B-12 Pt's Own Medication 11/27/2014 1 mL Cyanocobalamin/B-12 Pt's Own Medication 12/04/2014 1 mL Cyanocobalamin/B-12 Pt's Own Medication 12/11/2014 1 mL Cyanocobalamin/B-12 Pt's Own Medication 02/17/2015 1 mL Cyanocobalamin/B-12 Pt's Own Medication 04/30/2015 1 mL Dexamethasone 4mg Injection 06/13/2022 4 mg Dexamethasone 4mg Injection 07/05/2023 4 mg Dexamethasone 4mg Injection 04/23/2025 4 mg Kenalog 40mg 01/26/2017 40 mg Kenalog 40mg 08/13/2017 40 mg Triamcinolone Acetonide 40mg Injection 10/10/2018 1 mL Triamcinolone Acetonide 40mg Injection 08/05/2019 1 mL Kenalog 05/07/2013 1 Medical (General) History Medical History History ICD Code irritable bowel syndrome Hypothyroidism B12 Deficiency Breast cancer Surgical History Surgery Date(Month/Year) Hysterectomy 09/2013 Tubal ligation 2000 Cholecystectomy 12/20/2017 Colonoscopy 11/2020 Lumpectomy LT breast Jul lumpectomy Rtr breast 09/10/2024 Hospitalization History Reason Date(Month/Year) hysterectomy
== END 2025-07-28 23:59 | disposition home or self-care (01) ==
LOC: RAD 15:45
PROVIDERS: PCP Nurse Practitioner Family; Visit Provider Nurse Practitioner Family
DX: C50.911 Malignant neoplasm of unspecified site of right female breast (principal); C50.912 Malignant neoplasm of unspecified site of left female breast; N94.10 Unspecified dyspareunia; R93.89 Abnormal findings on diagnostic imaging of other specified body structures; Z90.710 Acquired absence of both cervix and uterus
CPT/HCPCS: 76830